=== PATIENT | male | born 1955 | race Caucasian/White ===

== ENCOUNTER 2017-05-03 11:02 | Inpatient (IN) | payer OTHER ==
[2017-05-03] VITALS (9 sets, daily range): BP systolic 150–181; BP diastolic 90–96; PULSE 84–108; RESP 18–25; TEMP 97.8–98.4; O2SAT 94–99
[~2017-05-03] VITALS: Ht 180.3 cm; Wt 78.6 kg
[~2017-05-03 11:02] MED LIST: ECASA PO; METO50TA PO; SOFOSBUVIR; WARF5 PO; [UNRECOGNIZED DRUG - CODE] PO
[2017-05-03] MEDS ORDERED: SOFO400T PO (11:14)
[2017-05-03] MEDS ORDERED: SODIUM CHLORIDE 0.9% FLUSH 10 ML FLUSH IVF PRN (11:15)
--- NOTE | 2017-05-03 11:34 | PD ---
HPI Chief Complaint: Respiratory Distress Time Seen by Provider: 11:13 Travel History International Travel<30 days: No Contact w/Intl Traveler<30days: No Traveled to known affect area: No History of Present Illness HPI Patient is a 61-year-old male presents emergency department for evaluation of shortness of breath progressive over the past few weeks. Patient also noticed that he has had increased leg swelling as well as shortness of breath when he lays down flat. He was seen at the [place] [facility] had a saturation of 84% there was placed on oxygen and EMS was called for transport here. Patient states he has a history of COPD no history of heart disease or CHF. PFSH Past Medical History Asthma: Yes Cancer: No Cardiovascular Problems: Yes (HTN, ) High Cholesterol: Yes COPD: Yes Cerebrovascular Accident: Yes (TIA) Diminished Hearing: No Endocrine: No Gastrointestinal Disorders: Yes Genitourinary: No Hypertension: Yes Immune Disorder: No Musculoskeletal: No Neurologic: Yes (TIA ) Psychiatric: No Reproductive: No Respiratory: Yes (COPD) Past Surgical History Other Surgery: Yes (HERNIA REPAIR X2) Social History Alcohol Use: No Tobacco Use: No (QUIT 1 WEEK AGO) Substance Use: No Allergies-Medications (Allergen,Severity, Reaction): Coded Allergies: No Known Allergies (Unverified , 05/03/17) Reported Meds & Prescriptions Reported Meds & Active Scripts Active Reported Vitamin D3 (Cholecalciferol) 1,000 Unit Tab 2,000 Units PO DAILY Pravastatin 40 Mg Tab 40 Mg PO DAILY Metoprolol Tartrate 100 Mg Tab 50 Mg PO BID Symbicort Inh (Budesonide/Formoterol Fumarate) 160-4.5 Mcg/Act Aero 2 Puff INH Q12HR Rinse mouth after each use Combivent Respimat Inh (Ipratropium-Albuterol Inh) 20-100 Long Term/Act Aero 1 Puff INH Q4HR Do not exceed 6 puffs/24hrs Duoneb (Ipratropium-Albuterol Neb) 0.5-2.5 Mg/3 Ml Neb 1 Vial NEB BID PRN Review of Systems Except as stated in HPI: all other systems reviewed are Neg Physical Exam Narrative GENERAL: Well-developed well-nourished, mildly short of breath with nontoxic appearance. SKIN: Focused skin assessment warm/dry. HEAD: Atraumatic. Normocephalic. EYES: Pupils equal and round. No scleral icterus. No injection or drainage. ENT: No nasal bleeding or discharge. Mucous membranes pink and moist. NECK: Trachea midline. No JVD. CARDIOVASCULAR: Regular rate and rhythm. No murmur appreciated. RESPIRATORY: No accessory muscle use. Bibasilar rales. Breath sounds equal bilaterally. GASTROINTESTINAL: Abdomen soft, non-tender, nondistended. Hepatic and splenic margins not palpable. MUSCULOSKELETAL: No obvious deformities. No clubbing. No cyanosis. 2+ pitting edema bilaterally equal from the patella distally.. NEUROLOGICAL: Awake and alert. No obvious cranial nerve deficits. Motor grossly within normal limits. Normal speech. PSYCHIATRIC: Appropriate mood and affect; insight and judgment normal. Data Data Last Documented VS Vital Signs Date Time Temp Pulse Resp B/P Pulse Ox O2 Delivery O2 Flow Rate FiO2 05/03/17 11:17 99 Nasal Cannula 05/03/17 11:17 3 05/03/17 11:15 97.8 88 25 154/96 Orders Electrocardiogram (05/03/17 11:13) Ckmb (Isoenzyme) Profile (05/03/17 11:13) Complete Blood Count With Diff (05/03/17 11:13) Comprehensive Metabolic Panel (05/03/17 11:13) Magnesium (Mg) (05/03/17 11:13) Prothrombin Time / Inr (Pt) (05/03/17 11:13) Act Partial Throm Time (Ptt) (05/03/17 11:13) Troponin I (05/03/17 11:13) Chest, Single Ap (05/03/17 11:13) Ecg Monitoring (05/03/17 11:13) Iv Access Insert/Monitor (05/03/17 11:13) Oximetry (05/03/17 11:13) Oxygen Administration (05/03/17 11:13) Sodium Chloride 0.9% Flush (Ns Flush) (05/03/17 11:15) CKMB (05/03/17 11:30) CKMB% (05/03/17 11:30) Aspirin Chew (Aspirin Chew) (05/03/17 12:45) Furosemide Inj (Lasix Inj) (05/03/17 12:45) Admit Order (Ed Use Only) (05/03/17 ) Labs Laboratory Tests Test 05/03/17 11:30 White Blood Count 8.0 TH/MM3 Red Blood Count 5.23 MIL/MM3 Hemoglobin 12.6 GM/DL Hematocrit 41.6 % Mean Corpuscular Volume 79.5 FL Mean Corpuscular Hemoglobin 24.2 PG Mean Corpuscular Hemoglobin 30.4 % Concent Red Cell Distribution Width 19.1 % Platelet Count 236 TH/MM3 Mean Platelet Volume 8.6 FL Neutrophils (%) (Auto) 75.7 % Lymphocytes (%) (Auto) 13.3 % Monocytes (%) (Auto) 9.5 % Eosinophils (%) (Auto) 0.9 % Basophils (%) (Auto) 0.6 % Neutrophils # (Auto) 6.1 TH/MM3 Lymphocytes # (Auto) 1.1 TH/MM3 Monocytes # (Auto) 0.8 TH/MM3 Eosinophils # (Auto) 0.1 TH/MM3 Basophils # (Auto) 0.1 TH/MM3 CBC Comment AUTO DIFF Differential Comment AUTO DIFF CONFIRMED Platelet Estimate NORMAL Platelet Morphology Comment NORMAL Prothrombin Time 12.2 SEC Prothromb Time International 1.1 RATIO Ratio Activated Partial 26.0 SEC Thromboplast Time Sodium Level 138 MEQ/L Potassium Level 4.2 MEQ/L Chloride Level 99 MEQ/L Carbon Dioxide Level 31.8 MEQ/L Anion Gap 7 MEQ/L Blood Urea Nitrogen 22 MG/DL Creatinine 1.35 MG/DL Estimat Glomerular Filtration 54 ML/MIN Rate Random Glucose 86 MG/DL Calcium Level 7.6 MG/DL Magnesium Level 1.6 MG/DL Total Bilirubin 0.4 MG/DL Aspartate Amino Transf 18 U/L (AST/SGOT) Alanine Aminotransferase 17 U/L (ALT/SGPT) Alkaline Phosphatase 78 U/L Total Creatine Kinase 146 U/L Creatine Kinase MB 5.6 NG/ML Troponin I 0.04 NG/ML B-Type Natriuretic Peptide 1345 PG/ML Total Protein 6.1 GM/DL Albumin 2.6 GM/DL [facility] Medical Decision Making Medical Screen Exam Complete: Yes Emergency Medical Condition: Yes Interpretation(s) EKG shows normal sinus rhythm normal axis normal R-wave progression concerning ST T changes intervals within normal limits. This normal EKG. Differential Diagnosis Acute onset CHF, electrolyte abnormality, ACS, [place], arrhythmia. Narrative Course Patient roomed in the emergency department, initial saturations low in the field , bonding well to nasal cannula oxygen. Given Lasix. Clinically patient is having acute congestive heart failure and fluid overload. Last 24 hours Impressions Chest X-Ray 05/03/17 1113 Signed Impressions: Service Date/Time: April 11:16 - CONCLUSION: 1. Mild cardiomegaly with bilateral effusion suggesting possible congestive failure. There are however consolidative changes in the lung bases and underlying pneumonia is not excluded. Alvarez Stein MD Clinically the patient does not exhibit signs of pneumonia, and I prefer an alternative diagnosis. He has not had any cough or fever or upper respiratory symptoms other than shortness of breath. Patient's troponin is in the equivocal range of 0.06. Secondary causes of CHF need to be considered. Discussed with the family medicine residents will be admitted to Dr. Rousseau, CIC is recommended given the patient's oxygen requirement. Diagnosis Primary Impression: CHF (congestive heart failure) Additional Impression: Acute respiratory failure with hypoxia Admitting Information Admitting Physician Requests: Admit Condition: Stable Bandar Kimble MD May 03, 2017 11:34
[2017-05-03] MEDS ORDERED: METO100T PO (11:44)
[2017-05-03] MEDS ORDERED: IPRASOL NEB (11:44)
[2017-05-03] MEDS ORDERED: VITA100018 PO (11:44)
[2017-05-03] MEDS ORDERED: SYMB160A INH (11:44)
[2017-05-03] MEDS ORDERED: PRAV40TA2 PO (11:44)
[2017-05-03] MEDS ORDERED: IPRAAER INH (11:44)
[2017-05-03 11:48] LABS: AUTOMATED NEUTROPHIL # 6.1 TH/MM3 (1.8-7.7); BASOPHIL # 0.1 TH/MM3 (0-0.2); BASOPHIL % 0.6 % (0.0-2.0); EOSINOPHIL # 0.1 TH/MM3 (0-0.4); EOSINOPHIL % 0.9 % (0.0-4.0); HEMATOCRIT 41.6 % (39.0-51.0); LYMPH % 13.3 % (9.0-44.0); LYMPHOCYTE # 1.1 TH/MM3 (1.0-4.8); MEAN CELL VOLUME 79.5 FL (80.0-100.0); MEAN CORPUSCULAR HEMOGLOBIN 24.2 PG (27.0-34.0); MEAN CORPUSCULAR HGB CONC 30.4 % (32.0-36.0); MONO % 9.5 % (0.0-8.0); NEUT % 75.7 % (16.0-70.0); PLATELET COUNT 236 TH/MM3 (150-450); RED BLOOD COUNT 5.23 MIL/MM3 (4.50-5.90); RED CELL DISTRIBUTION WIDTH 19.1 % (11.6-17.2)
[2017-05-03 11:50] LABS: HEMO FLAGS AUTO DIFF
[2017-05-03 11:57] LABS: INTERNATIONAL NORMALIZED RATIO 1.1 RATIO; PROTHROMBIN TIME - PATIENT 12.2 SEC (9.8-11.6)
[2017-05-03 12:04] LABS: ALT (GPT) 17 U/L (12-78); GLOMERULAR FILTRATION RATE 54 ML/MIN (>89)
--- NOTE | 2017-05-03 12:04 | RADRPT ---
EXAM DATE/TIME: 05/03/2017 11:16 [place] COMPARISON: No previous studies available for comparison. INDICATIONS : Shortness of breath for 3 weeks. MEDICAL HISTORY : Hypertension. Chronic obstructive pulmonary disease. Asthma. Diabetes. TIA. SURGICAL HISTORY : None. ENCOUNTER: Initial ACUITY: 3 weeks PAIN SCORE: 0/10 LOCATION: Bilateral chest FINDINGS: The heart is enlarged. There are small bilateral effusions. There consolidative changes in the lung b ases. Underlying pneumonia is not excluded. The visualized bony structures are grossly intact. CONCLUSION: 1. Mild cardiomegaly with bilateral effusion suggesting possible congestive failure. There are howeve r consolidative changes in the lung bases and underlying pneumonia is not excluded. Alvarez Stein MD on May 03, 2017 at 12:01 Board Certified Radiologist. This report was verified electronically.
[2017-05-03 12:09] LABS: ALKALINE PHOSPHATASE 78 U/L (45-117); ANION GAP 7 MEQ/L (5-15); AST (GOT) 18 U/L (15-37); BICARBONATE 31.8 MEQ/L (21.0-32.0); BLOOD UREA NITROGEN 22 MG/DL (7-18); CHLORIDE 99 MEQ/L (98-107); CREATINE KINASE 146 U/L (39-308); MAGNESIUM 1.6 MG/DL (1.5-2.5); POTASSIUM 4.2 MEQ/L (3.5-5.1); SODIUM (NA) 138 MEQ/L (136-145); TOTAL BILIRUBIN ADULT 0.4 MG/DL (0.2-1.0)
[2017-05-03 12:22] LABS: CKMB 5.6 NG/ML (0.5-3.6)
[2017-05-03 12:24] LABS: PLATELET ESTIMATE SMEAR NORMAL (NORMAL); PLATELET MORPHOLOGY NORMAL (NORMAL); SCAN/DIFF AUTO DIFF CONFIRMED
[2017-05-03] MEDS ORDERED: ASPIRIN 81 MG CHEW TAB CHEW ONE (12:45)
[2017-05-03] MEDS ORDERED: FUROSEMIDE 40 MG/4 ML VIAL IV PUSH ONE (12:45)
--- NOTE | 2017-05-03 12:58 | HHI.HP ---
[facility] Service Family Medicine Primary Care Physician [facility] Admission Diagnosis Diagnoses: International Travel<30 Days: No Contact w/Intl Traveler<30days: No Known Affected Area: No History of Present Illness Patient is a 61-year-old male with past medical history significant for COPD, hypertension, prediabetes presenting due to worsening shortness of breath. Patient was seen earlier today at the [place] and found to have a low oxygen saturation of 84%. He was transported to the ED via [facility]. He reports that over the past 3 weeks he has had progressively worsening shortness of breath. He attributed this to his COPD. His legs have been swollen for the same amount of time. He reports that the swelling initially started in his feet and ankles and gradually worsened. He reports that he has been drinking more fluids over the past few weeks. He drinks about 34 12 ounce bottles of water daily, as well as a similar sized bottle of the Gatorade. He denies prior history of lower extremity edema, heart problems. (Aditi Lopes MD R2) Review of Systems Constitutional: DENIES: Fever, Chills Eyes: DENIES: Blurred vision, Diplopia, Vision loss Ears, nose, mouth, throat: DENIES: Vertigo Respiratory: COMPLAINS OF: Wheezing, Shortness of breath, DENIES: Cough Cardiovascular: DENIES: Chest pain Gastrointestinal: DENIES: Constipation, Diarrhea Genitourinary: DENIES: Hematuria Musculoskeletal: DENIES: Joint pain, Muscle aches, Stiffness Integumentary: COMPLAINS OF: Rash Neurologic: COMPLAINS OF: Headache Psychiatric: COMPLAINS OF: Anxiety (Aditi Lopes MD R2) Past Family Social History Past Medical History COPD Hepatitis C, treated about 2 years ago HTN ?DM TIA, one year ago Hospitalized recently due to bleeding associated with serotherapeutic INR while on Coumadin Past Surgical History Inguinal and umbilical hernia repair Oral surgery Reported Medications Reported Meds & Active Scripts Active Reported Vitamin D3 (Cholecalciferol) 1,000 Unit Tab 2,000 Units PO DAILY Pravastatin 40 Mg Tab 40 Mg PO DAILY Metoprolol Tartrate 100 Mg Tab 50 Mg PO BID Symbicort Inh (Budesonide/Formoterol Fumarate) 160-4.5 Mcg/Act Aero 2 Puff INH Q12HR Rinse mouth after each use Combivent Respimat Inh (Ipratropium-Albuterol Inh) 20-100 Prison/Act Aero 1 Puff INH Q4HR Do not exceed 6 puffs/24hrs Duoneb (Ipratropium-Albuterol Neb) 0.5-2.5 Mg/3 Ml Neb 1 Vial NEB BID PRN ASA 81 mg po Daily Vit C 1000mg po daily (Aditi Lopes MD R2) Allergies: Coded Allergies: No Known Allergies (Unverified , 05/03/17) Active Ordered Medications Inpatient Medications Albuterol/ Ipratropium (Duoneb Neb) 1 ampule Q4HR NEB NEB Last administered on 05/03/17 20:11; Start 05/03/17 at 16:00 Aspirin (Aspirin Chew) 81 mg DAILY CHEW ; Start 05/04/17 at 09:00 Budesonide/ Formoterol Fumarate (Symbicort 160-4.5 Inh) 2 puff Q12HR INH Last administered on 05/03/17 21:20; Start 05/03/17 at 21:00 Cholecalciferol (Vitamin D3) 2,000 units DAILY PO ; Start 05/04/17 at 09:00 Enoxaparin Sodium (Lovenox Inj) 40 mg Q24H SQ Last administered on 05/03/17 16 :17; Start 05/03/17 at 15:00 Furosemide (Lasix Inj) 40 mg BID@,18 IVP Last administered on 05/03/17 17:45 ; Start 05/03/17 at 18:00 Metoprolol Tartrate (Lopressor) 50 mg BID PO Last administered on 05/03/17 21: 21; Start 05/03/17 at 21:00 Nystatin (Mycostatin Liq) 5 ml QID SWISH-SWAL Last administered on 05/03/17 21:20; Start 05/03/17 at 18:00 Potassium Chloride (KCl) 20 meq BID PO Last administered on 05/03/17 21:21; Start 05/03/17 at 21:00 Pravastatin Sodium (Pravachol) 40 mg DAILY PO ; Start 05/04/17 at 09:00 Sodium Chloride (NS Flush) 2 ml UNSCH PRN IV FLUSH FLUSH AFTER USING IV ACCESS ; Start 05/03/17 at 13:45 Family History Mother: On Coumadin, unsure of reason, 83 living, overall healthy Father: in 70's from unspecified heart problems Social History Currently lives alone in [employer] Previously smoked 40 years up to 2 packs per day, he quit about one weeks ago. March 10 he quit drinking. Previously drank for 40 years History of marijuana and cocaine use, last use several years ago. Denies ever using IV drugs. (Aditi Lopes MD R2) Physical Exam Vital Signs Vital Signs Date Time Temp Pulse Resp B/P Pulse Ox O2 Delivery O2 Flow Rate FiO2 05/03/17 11:17 99 Nasal Cannula 05/03/17 11:17 99 Nasal Cannula 3 05/03/17 11:15 97.8 88 25 154/96 96 Nasal Cannula 3 Physical Exam GENERAL: This is a well-nourished, well-developed patient, in no acute cardiopulmonary. SKIN: some redness of lower extremities, R>L, no ecchymoses or lesions. Cool and dry. HEAD: Atraumatic. Normocephalic. No temporal or scalp tenderness. EYES: Pupils equal round and reactive. Extraocular motions intact. No scleral icterus. No injection or drainage. ENT: Nose without bleeding, purulent drainage or septal hematoma. Throat without erythema, tonsillar hypertrophy. White plaques present in posterior pharynx, consistent with candidiasis. Uvula midline. Airway patent. NECK: Trachea midline. No JVD or lymphadenopathy. Supple, nontender, no meningeal signs. No carotid bruits. CARDIOVASCULAR: Distant heart sounds. Regular rate and rhythm without murmurs, gallops, or rubs. RESPIRATORY: Clear to auscultation. Poor air movement, decreased breath sounds. GASTROINTESTINAL: Abdomen soft, non-tender, nondistended. No hepato-splenomegaly , or palpable masses. No guarding. Pt with pitting edema to level of mid abdomen. MUSCULOSKELETAL: 2+ pitting edema of lower extremities that entends to mid abdomen. NEUROLOGICAL: Awake and alert. Motor and sensory grossly within normal limits. Normal speech. Laboratory Laboratory Tests Test 05/03/17 11:30 White Blood Count 8.0 Red Blood Count 5.23 Hemoglobin 12.6 Hematocrit 41.6 Mean Corpuscular Volume 79.5 Mean Corpuscular Hemoglobin 24.2 Mean Corpuscular Hemoglobin 30.4 Concent Red Cell Distribution Width 19.1 Platelet Count 236 Mean Platelet Volume 8.6 Neutrophils (%) (Auto) 75.7 Lymphocytes (%) (Auto) 13.3 Monocytes (%) (Auto) 9.5 Eosinophils (%) (Auto) 0.9 Basophils (%) (Auto) 0.6 Neutrophils # (Auto) 6.1 Lymphocytes # (Auto) 1.1 Monocytes # (Auto) 0.8 Eosinophils # (Auto) 0.1 Basophils # (Auto) 0.1 CBC Comment AUTO DIFF Differential Comment AUTO DIFF CONFIRMED Platelet Estimate NORMAL Platelet Morphology Comment NORMAL Prothrombin Time 12.2 Prothromb Time International 1.1 Ratio Activated Partial 26.0 Thromboplast Time Sodium Level 138 Potassium Level 4.2 Chloride Level 99 Carbon Dioxide Level 31.8 Anion Gap 7 Blood Urea Nitrogen 22 Creatinine 1.35 Estimat Glomerular Filtration 54 Rate Random Glucose 86 Calcium Level 7.6 Magnesium Level 1.6 Total Bilirubin 0.4 Aspartate Amino Transf 18 (AST/SGOT) Alanine Aminotransferase 17 (ALT/SGPT) Alkaline Phosphatase 78 Total Creatine Kinase 146 Creatine Kinase MB 5.6 Troponin I 0.04 Total Protein 6.1 Albumin 2.6 (Aditi Lopes MD R2) Result Diagram: 05/03/17 1130 05/03/17 1130 Imaging Last Impressions Chest X-Ray 05/03/17 1113 Signed Impressions: Service Date/Time: , May 03, 2017 11:16 - CONCLUSION: 1. Mild cardiomegaly with bilateral effusion suggesting possible congestive failure. There are however consolidative changes in the lung bases and underlying pneumonia is not excluded. Alvarez Stein MD (Aditi Lopes MD R2) Assessment and Plan Assessment and Plan Patient is a 61-year-old male with past medical history significant for COPD, hypertension, prediabetes presenting due to worsening shortness of breath. Code Status Full Discussed Condition With sdw Dr. Cy Miller (Aditi Lopes MD R2) Attending Attestation Patient seen and examined. Case reviewed and discussed with the resident team. Agree with plan of care as discussed with me and documented in the resident note. (Zenobia Rousseau MD) Problem List: (1) CHF (congestive heart failure) Status: Acute Plan: Patient presents with worsening shortness of breath and lower extremity edema. Patient denies history of heart problems. BNP on admission elevated to 1345. -Will rule out ACS as possible cause of acute onset CHF: Troponin 0.04-> 0.05-> 0.06 -No acute ST changes on EKG -Trend BNP -We'll check TSH, lipid profile -Furosemide 40 mg IV BID -Monitor intake and output -Fluid restriction -Daily weights -Monitor electrolytes Imaging: Echocardiogram 05/03/17: Normal left ventricle systolic function, EF of 5560 percent. Normal left ventricle size. Wall thickness is at the upper limits of normal. Moderate tricuspid regurgitation. Estimated pulmonary arterial pressure is 62 mmHg. Chest x-ray 05/03/17: Mild cardiomegaly with bilateral effusions suggestive of congestive heart failure. Consolidative changes in the lung bases, pneumonia is not excluded. (2) COPD (chronic obstructive pulmonary disease) Status: Chronic Plan: Continue home medications: -Symbicort 2 puffs INH BID -DuoNeb's Q6hrs PRN SOB -Supplemental oxygen as needed (3) Oral candidiasis Status: Acute Plan: Patient with white plaques in the posterior oropharynx consistent with candidiasis. -Start Nystatin swish and swallow QID (4) Hyperlipemia Status: Chronic Plan: Continue home medication: -Pravastatin 40 mg PO Daily (5) HTN (hypertension) Status: Chronic Plan: Continue home medications: -Metoprolol 50 mg BID -Clonidine and hydralazine PRN See CHF above (6) FEN/PPX Status: Acute Plan: Fluids: None, pt fluid overloaded Electrolytes: Continue to monitor Nutrition: Heart healthy diet, fluid restricted DVT PPX: Lovenox (Aditi Lopes MD R2) Physician Certification 2 Midnight Certification Type: Admission for Inpatient Services Order for Inpatient Services The services are ordered in accordance with Medicare regulations or non- Medicare payer requirements, as applicable. In the case of services not specified as inpatient-only, they are appropriately provided as inpatient services in accordance with the 2-midnight benchmark. Estimated LOS (days): 2 2 days is the estimated time the patient will need to remain in the hospital, assuming treatment plan goals are met and no additional complications. Post-Hospital Plan: Home (Aditi Lopes MD R2) Problem Qualifiers (1) CHF (congestive heart failure): Qualified Code: I50.41 - Acute combined systolic and diastolic congestive heart failure Aditi Lopes MD R2 May 03, 2017 12:58 Zenobia Rousseau MD May 04, 2017 08:12
[2017-05-03] MEDS ORDERED: SODIUM CHLORIDE 0.9% FLUSH 10 ML FLUSH IV FLUSH PRN (13:45)
[2017-05-03] MEDS ORDERED: RESP: ALBUTEROL 2.5 MG/IPRATROPIUM 0.5 MG NEB (PRN) NEB (14:45)
[2017-05-03] MEDS: ENOXAPARIN SODIUM 40 MG/0.4 ML SYRINGE SQ SCH (16:17)
--- NOTE | 2017-05-03 16:49 | HHI.FPPN ---
Subjective Remarks Patient seen, examined and discussed with the medicine team. This is a 61-year-old who was seen at the [place] [facility] today for regular appointment and was sent to the hospital because his oxygen saturation was in the upper 80s. He reports that, 2 weeks prior to admission, he essentially suddenly started to notice significant swelling in his lower extremities. He was at work during the day and his boots felt tight, and he got home at night he noticed significant swelling in his ankles. He has held off going to the doctor for this because he knew he had an upcoming appointment. The swelling has worsened, and he has become significantly short of breath. He's never had a previous similar problem although he did have a TIA or stroke in the past. He has over time been a have very heavy smoker but has gradually tapered his tobacco use and quit one week ago. He was a heavy drinker and used illicits in the past but quit drinking when he had to be medicated for his hepatitis C. No further illicit use. This symptom of swelling and shortness of breath seemed to come on rather suddenly, and has not been relieved. He is on multiple medications including aspirin and statin. See history and physical examination for this admission for additional past, family and social history and review of systems. In particular, he denies chest pain and reports some increased abdominal girth. No unusual dietary intake and no recent changes in his chronic medications. Objective Vitals Vital Signs Date Time Temp Pulse Resp B/P Pulse Ox O2 Delivery O2 Flow Rate FiO2 05/03/17 11:17 99 Nasal Cannula 05/03/17 11:17 99 Nasal Cannula 3 05/03/17 11:15 97.8 88 25 154/96 96 Nasal Cannula 3 I/O 05/02/17 05/02/17 05/02/17 05/03/17 05/03/17 05/03/17 07:00 15:00 23:00 07:00 15:00 23:00 Intake Total 240 ml Output Total 1375 ml 500 ml Balance -1135 ml -500 ml Intake Oral 240 ml Output Urine Total 1375 ml 500 ml # Voids 2 1 Result Diagram: 05/03/17 1130 05/03/17 1130 Other Results Laboratory Tests Test 05/03/17 11:30 Hemoglobin 12.6 GM/DL Mean Corpuscular Volume 79.5 FL Mean Corpuscular Hemoglobin 24.2 PG Mean Corpuscular Hemoglobin 30.4 % Concent Red Cell Distribution Width 19.1 % Neutrophils (%) (Auto) 75.7 % Monocytes (%) (Auto) 9.5 % Prothrombin Time 12.2 SEC Blood Urea Nitrogen 22 MG/DL Creatinine 1.35 MG/DL Estimat Glomerular Filtration 54 ML/MIN Rate Calcium Level 7.6 MG/DL Creatine Kinase MB 5.6 NG/ML B-Type Natriuretic Peptide 1345 PG/ML Total Protein 6.1 GM/DL Albumin 2.6 GM/DL Imaging Last Impressions Chest X-Ray 05/03/17 1113 Signed Impressions: Service Date/Time: , May 03, 2017 11:16 - CONCLUSION: 1. Mild cardiomegaly with bilateral effusion suggesting possible congestive failure. There are however consolidative changes in the lung bases and underlying pneumonia is not excluded. Alvarez Stein MD Objective Remarks O. CONSTITUTIONAL/GEN: normally nourished, in NAD. EYES: conjunctiva normal, PERRLA, EOMI. ENT: Mucous membranes are moist, but he has white patches in the posterior pharynx. NECK: thyroid midline, carotids symmetrical. LUNGS: Decreased breath sounds throughout CARDIOVASCULAR: RR without murmur or gallop. He has marked pitting edema to the low back, sacral and lower abdominal wall. GI/ABD: Firm with pitting edema : no CVA tenderness NEURO: No focal deficits. SKIN: Erythematous rash on his left lower extremity, skin is warm and pink HEME/LYMPH: no bruising, petechia or significant adenopathy MUSC: back is normal in appearance with the exception of the sacral edema. Lower Extremities show pitting edema throughout, 4+ PSYCH/MENTAL STATUS: Alert and oriented x 3. A/P Assessment and Plan 61-year-old who presents with symptoms of congestive heart failure superimposed on COPD Attending Attestation Patient seen and examined. Case reviewed and discussed with the resident team. Agree with plan of care as discussed with me and documented in the resident note. Problem List: (1) Acute respiratory failure with hypoxia Status: Acute (2) CHF (congestive heart failure) Status: Acute (3) Oral pharyngeal candidiasis Status: Acute Problem Qualifiers (1) CHF (congestive heart failure): Qualified Code: I50.41 - Acute combined systolic and diastolic congestive heart failure Zenobia Rousseau MD May 03, 2017 16:49
[2017-05-03] MEDS: FUROSEMIDE 40 MG/4 ML VIAL IVP SCH (17:45)
[2017-05-03] MEDS: RESP: ALBUTEROL 2.5 MG/IPRATROPIUM 0.5 MG NEB (SCH) NEB ×2 (17:46→20:11)
--- NOTE | 2017-05-03 17:47 | ECHRPT ---
Indication: Chronic combined systolic (congestive) and diastolic (congestive) heart failure CONCLUSIONS The left ventricular systolic function is normal with an estimated ejection fraction in the range of 55-60%. Normal left ventricular size. Wall thickness is measured at the upper limits of normal. There is moderate tricuspid regurgitation. The estimated pulmonary arterial pressure is 62 mmHg. The pulmonary valve is not well visualized. BP: 154 / 96 HR: 88 Rhythm: Sinus MEASUREMENTS (Male / Female) Normal Values Technical Quality:Fair 2D ECHO LV Diastolic Diameter PLAX 5.5 cm 4.2 - 5.9 / 3.9 - 5.3 cm LV Systolic Diameter PLAX 4.2 cm IVS Diastolic Thickness 1.1 cm 0.6 - 1.0 / 0.6 - 0.9 cm LVPW Diastolic Thickness 1.1 cm 0.6 - 1.0 / 0.6 - 0.9 cm LV Relative Wall Thickness 0.4 LVOT Diameter 2.2 cm M-MODE Aortic Root Diameter MM 2.6 cm LA Systolic Diameter MM 3.3 cm LA Ao Ratio MM 1.3 AV Cusp Separation MM 1.7 cm DOPPLER AV Peak Velocity 124.0 cm/s AV Peak Gradient 6.2 mmHg LVOT Peak Velocity 91.8 cm/s LVOT Peak Gradient 3.4 mmHg AV Area Cont Eq pk 2.8 cm Mitral E Point Velocity 99.2 cm/s Mitral A Point Velocity 105.0 cm/s Mitral E to A Ratio 0.9 LV E' Lateral Velocity 10.3 cm/s Mitral E to LV E' Lateral Ratio 9.6 LV E' Septal Velocity 9.8 cm/s Mitral E to LV E' Septal Ratio 10.1 TR Peak Velocity 360.0 cm/s TR Peak Gradient 51.8 mmHg PV Peak Velocity 114.0 cm/s PV Peak Gradient 5.2 mmHg FINDINGS LEFT VENTRICLE The left ventricular systolic function is normal with an estimated ejection fraction in the range of 55-60%. Normal left ventricular size. Wall thickness is measured at the upper limits of normal. RIGHT VENTRICLE Normal right ventricular size and systolic function. LEFT ATRIUM The left atrial size is normal. RIGHT ATRIUM The right atrial size is normal. ATRIAL SEPTUM Normal atrial septal thickness without atrial level shunting by limited color doppler interrogation. AORTA The aortic root and proximal ascending aorta are normal in size on limited imaging. MITRAL VALVE Structurally normal mitral valve. No mitral valve stenosis or regurgitation. AORTIC VALVE Trileaflet aortic valve. No aortic valve stenosis or regurgitation. Aortic valve sclerosis is present. TRICUSPID VALVE Structurally normal tricuspid valve. There is moderate tricuspid regurgitation. The estimated pulmonary arterial pressure is 62 mmHg. PULMONARY VALVE The pulmonary valve is not well visualized. VESSELS The inferior vena cava is normal in size. PERICARDIUM There is no pericardial effusion present. Suhas Avila MD (Electronically Signed) Final Date:03 May 2017 17:46 Amended: 03 May 2017 17:49
[2017-05-03] MEDS: NYSTATIN SUSP 500,000 U/5 ML CUP SWISH-SWAL SCH ×2 (17:51→21:20)
[2017-05-03 19:42] LABS: CREATINE KINASE 107 U/L (39-308)
[2017-05-03 19:55] LABS: CKMB 6.2 NG/ML (0.5-3.6)
[2017-05-03] MEDS: BUDESONIDE-FORMOTEROL 160/4.5 MCG INHALER INH SCH (21:20)
[2017-05-03] MEDS: POTASSIUM CHLORIDE 20 MEQ CONTROLLED RELEASE TAB PO SCH (21:21)
[2017-05-03] MEDS: METOPROLOL TARTRATE 50 MG TAB PO SCH (21:21)
[2017-05-03] MEDS: SODIUM CHLORIDE 0.9% FLUSH 10 ML FLUSH IV FLUSH SCH (21:21)
[2017-05-04] VITALS (26 sets, daily range): BP systolic 146–164; BP diastolic 90–96; PULSE 84–108; RESP 20; TEMP 97.9–98.3; O2SAT 94–95
[2017-05-04] MEDS: RESP: ALBUTEROL 2.5 MG/IPRATROPIUM 0.5 MG NEB (SCH) NEB
[2017-05-04] MEDS ORDERED: cloNIDine HCL 0.1 MG TAB PO PRN (00:45)
[2017-05-04 00:58] LABS: CREATINE KINASE 114 U/L (39-308)
[2017-05-04 01:11] LABS: CKMB 5.8 NG/ML (0.5-3.6)
[2017-05-04] MEDS ORDERED: DOCUSATE SODIUM 50 MG/SENNA 8.6 MG TAB PO PRN (01:30)
[2017-05-04] MEDS: hydrALAZINE HCL 10 MG TAB PO PRN (05:30)
[2017-05-04 07:14] LABS: BASOPHIL # 0.1 TH/MM3 (0-0.2); BASOPHIL % 0.7 % (0.0-2.0); EOSINOPHIL # 0.1 TH/MM3 (0-0.4); EOSINOPHIL % 1.4 % (0.0-4.0); HEMATOCRIT 40.8 % (39.0-51.0); HEMO FLAGS DIFF FINAL; LYMPH % 15.1 % (9.0-44.0); LYMPHOCYTE # 1.1 TH/MM3 (1.0-4.8); MEAN CELL VOLUME 79.3 FL (80.0-100.0); MEAN CORPUSCULAR HEMOGLOBIN 24.2 PG (27.0-34.0); MEAN CORPUSCULAR HGB CONC 30.5 % (32.0-36.0); MONO % 12.6 % (0.0-8.0); NEUT % 70.2 % (16.0-70.0); PLATELET COUNT 232 TH/MM3 (150-450); RED BLOOD COUNT 5.14 MIL/MM3 (4.50-5.90); RED CELL DISTRIBUTION WIDTH 18.8 % (11.6-17.2); WHITE BLOOD COUNT 7.1 TH/MM3 (4.0-11.0)
[2017-05-04 07:38] LABS: ALT (GPT) 17 U/L (12-78); ANION GAP 9 MEQ/L (5-15); AST (GOT) 15 U/L (15-37); BICARBONATE 37.5 MEQ/L (21.0-32.0); BLOOD UREA NITROGEN 22 MG/DL (7-18); CHLORIDE 95 MEQ/L (98-107); POTASSIUM 3.9 MEQ/L (3.5-5.1); SODIUM (NA) 141 MEQ/L (136-145)
[2017-05-04 07:43] LABS: ALKALINE PHOSPHATASE 78 U/L (45-117); GLOMERULAR FILTRATION RATE 52 ML/MIN (>89); HDL CHOLESTEROL 24.3 MG/DL (40.0-60.0); TOTAL BILIRUBIN ADULT 0.6 MG/DL (0.2-1.0)
[2017-05-04] MEDS: METOPROLOL TARTRATE 50 MG TAB PO SCH ×2 (08:05→20:40)
[2017-05-04] MEDS: POTASSIUM CHLORIDE 20 MEQ CONTROLLED RELEASE TAB PO SCH ×2 (08:05→20:40)
[2017-05-04] MEDS: PRAVASTATIN SOD 40 MG TAB PO SCH (08:05)
[2017-05-04] MEDS: CHOLECALCIFEROL (VIT D3) 1000 UNIT TAB PO SCH (08:05)
[2017-05-04] MEDS: NYSTATIN SUSP 500,000 U/5 ML CUP SWISH-SWAL SCH ×4 (08:05→20:39)
[2017-05-04] MEDS: ASPIRIN 81 MG CHEW TAB CHEW SCH (08:05)
[2017-05-04] MEDS: SODIUM CHLORIDE 0.9% FLUSH 10 ML FLUSH IV FLUSH SCH ×2 (08:06→20:40)
[2017-05-04] MEDS: BUDESONIDE-FORMOTEROL 160/4.5 MCG INHALER INH SCH ×2 (08:06→20:39)
[2017-05-04] MEDS: FUROSEMIDE 40 MG/4 ML VIAL IVP SCH ×2 (08:06→17:17)
[2017-05-04 08:23] LABS: LDL CHOLESTEROL 36 MG/DL (0-99)
[2017-05-04] MEDS: ENOXAPARIN SODIUM 40 MG/0.4 ML SYRINGE SQ SCH (15:21)
--- NOTE | 2017-05-04 17:36 | HHI.FPPN ---
Subjective Remarks Patient seen and examined by medical team this morning. No acute events overnight with vital signs stable. Patient reports that he has been urinating all night secondary to his Lasix treatment. He states that his swelling has dramatically improved and feels much better. He currently has no complaints and denies any fevers, chills, shortness of breath, chest pain, NVD, abdominal tenderness, or calf tenderness. (Michael Benoit MD R1) Objective Vitals Vital Signs Date Time Temp Pulse Resp B/P Pulse Ox O2 Delivery O2 Flow Rate FiO2 05/04/17 16:00 98.3 87 20 164/95 94 05/04/17 15:00 95 Nasal Cannula 2.00 05/04/17 12:00 90 05/04/17 12:00 98.3 91 20 156/96 95 05/04/17 12:00 95 Nasal Cannula 2.00 05/04/17 11:00 90 05/04/17 10:00 86 05/04/17 09:00 94 05/04/17 08:44 94 Nasal Cannula 2.00 05/04/17 08:15 97.9 97 20 159/93 95 05/04/17 08:15 95 Nasal Cannula 2.00 05/04/17 08:00 96 05/04/17 07:00 95 05/04/17 06:10 94 05/04/17 05:00 98 05/04/17 04:00 93 05/04/17 03:00 93 05/04/17 03:00 98.3 92 20 153/90 94 05/04/17 03:00 94 Nasal Cannula 2.00 05/04/17 02:12 94 05/04/17 01:00 90 05/04/17 00:00 88 05/03/17 23:00 84 05/03/17 23:00 98 Nasal Cannula 2.00 05/03/17 23:00 98.0 89 20 150/90 98 05/03/17 22:00 102 05/03/17 21:00 108 05/03/17 20:00 94 05/03/17 19:00 102 05/03/17 19:00 95 Nasal Cannula 3.00 05/03/17 19:00 98.4 95 22 162/91 95 05/03/17 17:46 154/91 05/03/17 17:44 93 18 181/94 94 I/O 05/03/17 05/03/17 05/03/17 05/04/17 05/04/17 05/04/17 07:00 15:00 23:00 07:00 15:00 23:00 Intake Total 240 ml 720 ml Output Total 1375 ml 500 ml 3200 ml Balance -1135 ml -500 ml -2480 ml Intake Oral 240 ml 720 ml Output Urine Total 1375 ml 500 ml 3200 ml # Voids 2 1 # Bowel Movements 1 (Michael Benoit MD R1) Result Diagram: 05/04/17 0646 05/04/17 0646 Objective Remarks GENERAL: 61-year-old male sitting up in his recliner in no acute cardiopulmonary distress. SKIN: Erythema of the anterior lower extremities, R>L, no ecchymoses or lesions. Cool and dry. HEENT: Atraumatic, normocephalic with EOMI. White plaques on admission of oropharynx resolving with minimal residual. MMM. No JVD or LAD appreciated CARDIOVASCULAR: Distant heart sounds. Regular rate and rhythm without murmurs, gallops, or rubs. RESPIRATORY: Clear to auscultation. Mildly improved air movement, decreased breath sounds bilaterally. GASTROINTESTINAL: Abdomen soft, non-tender, nondistended. No hepato-splenomegaly , or palpable masses. No guarding. Pt with pitting edema to level of mid abdomen with mild improvement. MUSCULOSKELETAL: 2+ pitting edema of lower extremities that extends to mid abdomen. NEUROLOGICAL: Awake and alert. Motor and sensory grossly within normal limits. Normal speech. (Michael Benoit MD R1) A/P Assessment and Plan Patient is a 61-year-old male with past medical history significant for COPD, hypertension, prediabetes presenting due to worsening shortness of breath. Discharge Planning Pending further diuresis and clinical improvement. (Michael Benoit MD R1) Attending Attestation Patient seen and examined. Case reviewed and discussed with the resident team. Agree with plan of care as discussed with me and documented in the resident note. (Zenobia Rousseau MD) Problem List: (1) Lower extremity edema Status: Acute Plan: Patient with recent lower extremity edema and sacral with echocardiogram. Team to evaluate for other possible etiologies of excessive edema. UA: Pending Liver ultrasound: Pending (2) CHF (congestive heart failure) Status: Acute Plan: Patient presents with worsening shortness of breath and lower extremity edema. Patient denies history of heart problems. BNP on admission elevated to 1345. -Troponin 0.04-> 0.05-> 0.06 -No acute ST changes on EKG -BNP, 1345, 1931 -TSH within normal limits -Lipid panel: Triglycerides 80, cholesterol 76, LDL 36, HDL 24 -Furosemide 40 mg IV BID -Monitor intake and output -Fluid restriction -Daily weights -Monitor electrolytes Imaging: Echocardiogram 05/03/17: Normal left ventricle systolic function, EF of 5560 percent. Normal left ventricle size. Wall thickness is at the upper limits of normal. Moderate tricuspid regurgitation. Estimated pulmonary arterial pressure is 62 mmHg. Chest x-ray 05/03/17: Mild cardiomegaly with bilateral effusions suggestive of congestive heart failure. Consolidative changes in the lung bases, pneumonia is not excluded. (3) COPD (chronic obstructive pulmonary disease) Status: Chronic Plan: Continue home medications: -Symbicort 2 puffs INH BID -DuoNeb's Q6hrs PRN SOB -Supplemental oxygen as needed -Incentive spirometry (4) Oral candidiasis Status: Acute Plan: Patient with white plaques in the posterior oropharynx consistent with candidiasis. -Start Nystatin swish and swallow QID (5) Hyperlipemia Status: Chronic Plan: Continue home medication: -Pravastatin 40 mg PO Daily (6) HTN (hypertension) Status: Chronic Plan: Continue home medications: -Metoprolol 50 mg BID -Clonidine and hydralazine PRN See CHF above (7) FEN/PPX Status: Acute Plan: Fluids: None, pt fluid overloaded Electrolytes: Continue to monitor Nutrition: Heart healthy diet, fluid restricted DVT PPX: Lovenox (Michael Benoit MD R1) Problem Qualifiers (1) CHF (congestive heart failure): Qualified Code: I50.41 - Acute combined systolic and diastolic congestive heart failure Michael Benoit MD R1 May 04, 2017 17:36 Zenobia Rousseau MD May 04, 2017 18:47
[2017-05-04] MEDS ORDERED: NALOXONE HCL 0.4 MG/ML AMP IV PRN (19:15)
[2017-05-04] MEDS ORDERED: ACETAMINOPHEN 325 MG TAB PO PRN (19:15)
[2017-05-04] MEDS: ACETAMINOPHEN/HYDROcodone 325 MG/5 MG TAB PO PRN (20:40)
--- NOTE | 2017-05-04 22:28 | EKG ---
Date Performed: 05/04/2017 Time Performed: 03:42:22 PTAGE: 61 years EKG: Sinus rhythm Possible left atrial abnormality Lateral T wave changes are nonspecific Borderline ECG PREVIOUS TRACING : 05/03/2017 20.43 DOCTOR: Bassam Bhardwaj Interpretating Date/Time 05/04/2017 22:27:06
--- NOTE | 2017-05-04 22:36 | EKG ---
Date Performed: 05/03/2017 Time Performed: 20:43:14 PTAGE: 61 years EKG: Sinus rhythm Lateral T wave changes are nonspecific Borderline ECG PREVIOUS TRACING : 05/03/2017 11.28 DOCTOR: Bassam Bhardwaj Interpretating Date/Time 05/04/2017 22:34:12
--- NOTE | 2017-05-04 22:56 | EKG ---
Date Performed: 05/03/2017 Time Performed: 11:28:54 PTAGE: 61 years EKG: Sinus rhythm POSSIBLE LEFT ATRIAL ENLARGEMENT NONSPECIFIC T-WAVE ABNORMALITY ABNORMAL ECG PREVIOUS TRACING : 04/29/2016 15.39 DOCTOR: Bassam Bhardwaj Interpretating Date/Time 05/04/2017 22:55:13
[2017-05-05] VITALS (26 sets, daily range): BP systolic 152–180; BP diastolic 68–109; PULSE 76–107; RESP 18–20; TEMP 97.6–98.4; O2SAT 92–96
[2017-05-05 01:12] LABS: BLOOD, URINE NEG (NEG); COMMENT (UR) CULT NOT INDICATED; CULTURE IF INDICATED CULT NOT INDICATED; GLUCOSE,URINE NEG (NEG); KETONE, URINE NEG (NEG); NITRITE,URINE NEG (NEG); URINE COLOR LIGHT-YELLOW (YELLW/STRAW)
[2017-05-05] MEDS: ACETAMINOPHEN/HYDROcodone 325 MG/5 MG TAB PO PRN ×2 (01:27→21:24)
[2017-05-05] MEDS: hydrALAZINE HCL 10 MG TAB PO PRN (05:41)
[2017-05-05 05:46] LABS: HEMATOCRIT 40.6 % (39.0-51.0); MEAN CELL VOLUME 77.2 FL (80.0-100.0); MEAN CORPUSCULAR HEMOGLOBIN 24.6 PG (27.0-34.0); MEAN CORPUSCULAR HGB CONC 31.8 % (32.0-36.0); PLATELET COUNT 254 TH/MM3 (150-450); RED BLOOD COUNT 5.25 MIL/MM3 (4.50-5.90); REVIEW FLAG FINAL; WHITE BLOOD COUNT 7.5 TH/MM3 (4.0-11.0)
[2017-05-05 06:10] LABS: BLOOD UREA NITROGEN 18 MG/DL (7-18); CHLORIDE 93 MEQ/L (98-107); GLOMERULAR FILTRATION RATE 48 ML/MIN (>89); POTASSIUM 4.1 MEQ/L (3.5-5.1); SODIUM (NA) 142 MEQ/L (136-145)
[2017-05-05 06:11] LABS: ANION GAP 4 MEQ/L (5-15); BICARBONATE GREATER THAN 45.0 MEQ/L (21.0-32.0)
--- NOTE | 2017-05-05 08:37 | RADRPT ---
EXAM DATE/TIME: 05/05/2017 07:44 [facility] COMPARISON: CHEST SINGLE AP, May 03, 2017, 11:16. INDICATIONS : Abnormal labs. Hepatitis C. MEDICAL HISTORY : Hepatitis C. Hypercholesterolemia. Hypertension. CVA. COPD. Diabetes. SURGICAL HISTORY : Hernia repair. ENCOUNTER: Initial ACUITY: 2 days PAIN SCORE: 0/10 LOCATION: Bilateral upper quadrant MEASUREMENTS: LIVER: 17.6 cm length COMMON DUCT: 3 mm RIGHT KIDNEY: 10.8 x 5.2 x 5.0 cm SPLEEN: 12.6 cm length FINDINGS: LIVER: Normal echotexture without focal lesion or ductal dilatation. Main portal vein is patent with hepato pedal blood flow. COMMON DUCT: No intraluminal mass or stone visualized. GALLBLADDER: Contains no stones, demonstrates no wall thickening or pericholecystic fluid. PANCREAS: The visualized portions are within normal limits. RIGHT KIDNEY: No hydronephrosis, stone or mass. SPLEEN: No focal lesion. There are bilateral pleural effusions, right larger than left. CONCLUSION: 1. Liver demonstrates no abnormality to suggest cirrhosis. 2. Bilateral pleural effusions, right larger than left. Moe Mckinney MD on May 05, 2017 at 8:32 Board Certified Radiologist. This report was verified electronically.
--- NOTE | 2017-05-05 08:52 | HHI.FPPN ---
Subjective Remarks Patient seen and examined this morning. No acute events overnight with vital signs stable. Patient states that overnight he began to experience mild pain in his lower extremities and back which responded to [place] medication. Patient continues to have mild shortness of breath requiring 2-1/2 L of oxygen currently. He reports that while at the [facility] he was being evaluated for home oxygen and was using a friend's home oxygen tank as needed when short of breath at home. He has no other complaints and denies any fevers, chills, chest pain, NVD, abdominal pain, or calf tenderness. He expresses his desire to go home today, however we both agreed further diuresis and respiratory evaluation was needed. He was agreeable to possible discharge on 05/03 or pending his clinical course. (Michael Benoit MD R1) Objective Vitals Vital Signs Date Time Temp Pulse Resp B/P Pulse Ox O2 Delivery O2 Flow Rate FiO2 05/05/17 08:10 88 05/05/17 07:57 92 Nasal Cannula 2.00 05/05/17 07:36 95 Nasal Cannula 2.00 05/05/17 07:36 98.0 94 18 155/89 95 05/05/17 07:36 94 05/05/17 06:00 92 05/05/17 05:37 157/94 05/05/17 05:00 97.6 76 18 162/98 94 05/05/17 05:00 90 05/05/17 04:00 94 Nasal Cannula 2.00 05/05/17 04:00 88 05/05/17 03:00 86 05/05/17 02:00 86 05/05/17 01:00 98.0 92 20 152/97 95 05/05/17 01:00 86 05/05/17 00:00 84 05/04/17 23:00 84 05/04/17 23:00 95 Nasal Cannula 2.00 05/04/17 22:00 94 05/04/17 21:00 98 05/04/17 21:00 95 Nasal Cannula 2.00 05/04/17 20:00 98.2 98 20 146/93 95 05/04/17 20:00 103 05/04/17 19:00 102 05/04/17 18:00 106 05/04/17 17:00 108 05/04/17 16:00 100 05/04/17 16:00 98.3 87 20 164/95 94 05/04/17 15:00 95 Nasal Cannula 2.00 05/04/17 15:00 96 05/04/17 14:00 96 05/04/17 13:00 94 05/04/17 12:00 90 05/04/17 12:00 98.3 91 20 156/96 95 05/04/17 12:00 95 Nasal Cannula 2.00 05/04/17 11:00 90 05/04/17 10:00 86 05/04/17 09:00 94 I/O 05/04/17 05/04/17 05/04/17 05/05/17 05/05/17 05/05/17 07:00 15:00 23:00 07:00 15:00 23:00 Intake Total 720 ml 400 ml 480 ml Output Total 3200 ml 2600 ml 1500 ml Balance -2480 ml -2200 ml -1020 ml Intake Oral 720 ml 400 ml 480 ml IV Total 0 ml Output Urine Total 3200 ml 2600 ml 1500 ml # Voids 3 # Bowel Movements 1 0 (Michael Benoit MD R1) Result Diagram: 05/05/1752705/05/17527 Objective Remarks GENERAL: 61-year-old male sitting up in his recliner in no acute cardiopulmonary distress. SKIN: Erythema of the anterior lower extremities improved from admission. No ecchymoses or lesions. Cool and dry. HEENT: Atraumatic, normocephalic with EOMI. White plaques on admission of oropharynx resolving with minimal residual. MMM. No JVD or LAD appreciated CARDIOVASCULAR: Distant heart sounds. Regular rate and rhythm without murmurs, gallops, or rubs. RESPIRATORY: Mildly improved air movement, decreased breath sounds bilaterally. No CRW appreciated. Currently requiring 2.5 L of oxygen. GASTROINTESTINAL: Abdomen soft, non-tender, nondistended. No hepato-splenomegaly , or palpable masses. No guarding. Pt with pitting edema to level of bilateral lower extremities. MUSCULOSKELETAL: 2+ pitting edema of lower extremities improved drastically from admission. Currently with 2+ pitting edema to the level just below the knee. No cyanosis. NEUROLOGICAL: Awake and alert. Motor and sensory grossly within normal limits. Normal speech. (Michael Benoit MD R1) A/P Assessment and Plan Patient is a 61-year-old male with past medical history significant for COPD, hypertension, prediabetes presenting due to worsening shortness of breath. Discharge Planning Pending further diuresis and clinical improvement. (Michael Benoit MD R1) Attending Attestation Patient seen and examined. Case reviewed and discussed with the resident team. Agree with plan of care as discussed with me and documented in the resident note. pt improving overall (Michelle Mclaughlin MD) Problem List: (1) Lower extremity edema Status: Acute Plan: Patient with recent lower extremity edema and sacral with echocardiogram. Team to evaluate for other possible etiologies of excessive edema. Possibly related to elevated Pulmonary HTN. UA: Pending Liver ultrasound: Liver demonstrates no abnormality to suggest cirrhosis. Bilateral pleural effusions, right greater than the left Repeat chest x-ray ordered Continue Lasix diuresis (2) CHF (congestive heart failure) Status: Acute Plan: Patient presents with worsening shortness of breath and lower extremity edema. Patient denies history of heart problems. BNP on admission elevated to 1345. -Troponin 0.04-> 0.05-> 0.06 -No acute ST changes on EKG -BNP, 1345, 1931 -TSH within normal limits -Lipid panel: Triglycerides 80, cholesterol 76, LDL 36, HDL 24 -Furosemide 40 mg IV BID -Monitor intake and output -Fluid restriction -Daily weights -Monitor electrolytes Imaging: Echocardiogram 05/03/17: Normal left ventricle systolic function, EF of 5560 percent. Normal left ventricle size. Wall thickness is at the upper limits of normal. Moderate tricuspid regurgitation. Estimated pulmonary arterial pressure is 62 mmHg. Chest x-ray 05/03/17: Mild cardiomegaly with bilateral effusions suggestive of congestive heart failure. Consolidative changes in the lung bases, pneumonia is not excluded. (3) COPD (chronic obstructive pulmonary disease) Status: Chronic Plan: Continue home medications: -Symbicort 2 puffs INH BID -DuoNeb's Q6hrs PRN SOB -Supplemental oxygen as needed -Incentive spirometry -Acapella every 4 hours -Repeat home oxygen walk test 05/06 (4) Oral candidiasis Status: Acute Plan: Patient with white plaques in the posterior oropharynx consistent with candidiasis. Resolved on exam 05/05 -Start Nystatin swish and swallow QID (5) Hyperlipemia Status: Chronic Plan: Continue home medication: -Pravastatin 40 mg PO Daily (6) HTN (hypertension) Status: Chronic Plan: Continue home medications: -Metoprolol 50 mg BID -Clonidine and hydralazine PRN See CHF above (7) FEN/PPX Status: Acute Plan: Fluids: None, pt fluid overloaded Electrolytes: Continue to monitor Nutrition: Heart healthy diet, fluid restricted DVT PPX: Lovenox (Michael Benoit MD R1) Problem Qualifiers (1) CHF (congestive heart failure): Qualified Code: I50.41 - Acute combined systolic and diastolic congestive heart failure Michael Benoit MD R1 May 05, 2017 08:51 Michelle Mclaughlin MD May 08, 2017 12:29
[2017-05-05] MEDS: POTASSIUM CHLORIDE 20 MEQ CONTROLLED RELEASE TAB PO SCH ×2 (08:53→21:25)
[2017-05-05] MEDS: NYSTATIN SUSP 500,000 U/5 ML CUP SWISH-SWAL SCH ×4 (08:54→21:25)
[2017-05-05] MEDS: METOPROLOL TARTRATE 50 MG TAB PO SCH ×2 (08:54→21:24)
[2017-05-05] MEDS: PRAVASTATIN SOD 40 MG TAB PO SCH (08:54)
[2017-05-05] MEDS: CHOLECALCIFEROL (VIT D3) 1000 UNIT TAB PO SCH (08:54)
[2017-05-05] MEDS: ASPIRIN 81 MG CHEW TAB CHEW SCH (08:55)
[2017-05-05] MEDS: BUDESONIDE-FORMOTEROL 160/4.5 MCG INHALER INH SCH ×2 (08:55→21:26)
[2017-05-05] MEDS: FUROSEMIDE 40 MG/4 ML VIAL IVP SCH ×2 (08:55→17:58)
[2017-05-05] MEDS: SODIUM CHLORIDE 0.9% FLUSH 10 ML FLUSH IV FLUSH SCH ×2 (08:55→21:26)
--- NOTE | 2017-05-05 09:37 | RADRPT ---
EXAM DATE/TIME: 05/05/2017 09:22 [facility] COMPARISON: CHEST SINGLE AP, May 03, 2017, 11:16. INDICATIONS : Shortness of breath. MEDICAL HISTORY : Hepatitis C. Hypercholesterolemia. Hypertension. CVA. COPD. Diabetes. SURGICAL HISTORY : Hernia repair. ENCOUNTER: Initial ACUITY: 2 days PAIN SCORE: 0/10 LOCATION: Bilateral chest FINDINGS: Frontal and lateral views of the chest demonstrate a normal-sized cardiac silhouette with tortuous de scending thoracic aorta. Lungs are relatively hyperinflated. There is airspace opacity in the right m iddle lobe, improved compared to the prior study. There is blunting of the costophrenic sulci bilater ally. No pneumothorax is visualized. CONCLUSION: Background emphysema with small bilateral pleural effusions, stable from the prior study. Airspace op acity in the right middle lobe represents either atelectasis or consolidation and has improved. Moe Mckinney MD on May 05, 2017 at 9:33 Board Certified Radiologist. This report was verified electronically.
[2017-05-05] MEDS: ENOXAPARIN SODIUM 40 MG/0.4 ML SYRINGE SQ SCH (15:55)
[2017-05-06] VITALS (12 sets, daily range): BP systolic 148–155; BP diastolic 90–93; PULSE 85–96; RESP 18–20; TEMP 98.1–98.9; O2SAT 90–97
[2017-05-06] MEDS: ACETAMINOPHEN/HYDROcodone 325 MG/5 MG TAB PO PRN (02:48)
[2017-05-06 04:06] LABS: HEMATOCRIT 40.6 % (39.0-51.0); MEAN CELL VOLUME 78.5 FL (80.0-100.0); MEAN CORPUSCULAR HEMOGLOBIN 23.9 PG (27.0-34.0); MEAN CORPUSCULAR HGB CONC 30.5 % (32.0-36.0); PLATELET COUNT 237 TH/MM3 (150-450); RED BLOOD COUNT 5.18 MIL/MM3 (4.50-5.90); RED CELL DISTRIBUTION WIDTH 18.8 % (11.6-17.2); REVIEW FLAG FINAL; WHITE BLOOD COUNT 8.2 TH/MM3 (4.0-11.0)
[2017-05-06 04:36] LABS: BLOOD UREA NITROGEN 18 MG/DL (7-18); CHLORIDE 93 MEQ/L (98-107); GLOMERULAR FILTRATION RATE 54 ML/MIN (>89); POTASSIUM 3.9 MEQ/L (3.5-5.1); SODIUM (NA) 142 MEQ/L (136-145)
[2017-05-06 05:08] LABS: ANION GAP 4 MEQ/L (5-15); BICARBONATE GREATER THAN 45.0 MEQ/L (21.0-32.0)
[2017-05-06] MEDS: FUROSEMIDE 40 MG/4 ML VIAL IVP SCH (09:03)
[2017-05-06] MEDS: POTASSIUM CHLORIDE 20 MEQ CONTROLLED RELEASE TAB PO SCH (09:03)
[2017-05-06] MEDS: PRAVASTATIN SOD 40 MG TAB PO SCH (09:03)
[2017-05-06] MEDS: SODIUM CHLORIDE 0.9% FLUSH 10 ML FLUSH IV FLUSH SCH (09:03)
[2017-05-06] MEDS: NYSTATIN SUSP 500,000 U/5 ML CUP SWISH-SWAL SCH (09:04)
[2017-05-06] MEDS: METOPROLOL TARTRATE 50 MG TAB PO SCH (09:04)
[2017-05-06] MEDS: CHOLECALCIFEROL (VIT D3) 1000 UNIT TAB PO SCH (09:04)
[2017-05-06] MEDS: ASPIRIN 81 MG CHEW TAB CHEW SCH (09:04)
[2017-05-06] MEDS: BUDESONIDE-FORMOTEROL 160/4.5 MCG INHALER INH SCH (09:05)
[2017-05-06] MEDS ORDERED: FURO40TA PO ×2 (10:14→11:15)
[2017-05-06] MEDS ORDERED: ASPI81CH25 CHEW ×2 (10:14→11:15)
--- NOTE | 2017-05-06 10:15 | HHI.DCPOC ---
Discharge Care Plan Diagnosis: (1) COPD (chronic obstructive pulmonary disease) (2) Lower extremity edema (3) Pulmonary congestion (4) Pulmonary hypertension Goals to Promote Your Health * To prevent worsening of your condition and complications * To maintain your health at the optimal level Directions to Meet Your Goals Take your medications as prescribed Follow your dietary instruction Follow activity as directed Keep your appointments as scheduled Take your immunizations and boosters as scheduled If your symptoms worsen call your PCP, if no PCP go to Urgent Care Center or Emergency Room Smoking is Dangerous to Your Health. Avoid second hand smoke Call the 24-hour hour crisis hotline for domestic abuse at Timur Ivory MD R2 May 06, 2017 10:15
--- NOTE | 2017-05-06 10:56 | HHI.FPPN ---
Subjective Remarks Edema is significantly improved. Still has pitting edema up to shins but much better than at admission. His breathing is back to baseline. He uses 2L oxygen at home. He has been walking around without much difficulty. He has orthopnea at baseline. He reports no wheezing. No chest pain. No dyspnea. No abdominal pain or calf tenderness. Wants to go home today. [facility] (Timur Ivory MD R2) Objective Vitals Vital Signs Date Time Temp Pulse Resp B/P Pulse Ox O2 Delivery O2 Flow Rate FiO2 05/06/17 10:04 92 05/06/17 09:00 96 05/06/17 08:08 90 Nasal Cannula 4.00 05/06/17 08:00 98.9 95 18 155/93 95 05/06/17 08:00 95 05/06/17 07:54 90 05/06/17 07:00 Nasal Cannula 2.00 05/06/17 06:00 85 05/06/17 05:00 90 05/06/17 04:00 Nasal Cannula 2.00 05/06/17 04:00 86 05/06/17 04:00 98.1 86 18 148/90 97 05/06/17 03:00 91 05/06/17 02:00 89 05/06/17 01:00 93 05/06/17 00:00 90 05/06/17 00:00 Nasal Cannula 2.00 05/06/17 00:00 98.1 90 20 149/93 97 05/05/17 23:00 100 05/05/17 22:00 100 05/05/17 21:00 102 05/05/17 20:30 96 Nasal Cannula 3.00 05/05/17 20:00 Nasal Cannula 2.00 05/05/17 20:00 98.4 102 18 180/109 95 05/05/17 20:00 101 05/05/17 18:12 106 05/05/17 17:10 99 05/05/17 16:14 98 05/05/17 15:28 98.3 100 18 154/79 93 05/05/17 15:28 93 Nasal Cannula 2.00 05/05/17 15:28 100 05/05/17 14:04 107 05/05/17 13:55 18 05/05/17 13:03 100 05/05/17 12:02 99 05/05/17 11:13 94 Nasal Cannula 2.00 05/05/17 11:13 98.4 76 18 170/68 95 05/05/17 11:13 76 I/O 05/05/17 05/05/17 05/05/17 05/06/17 05/06/17 05/06/17 07:00 15:00 23:00 07:00 15:00 23:00 Intake Total 480 ml 740 ml 480 ml Output Total 1500 ml 1850 ml 1500 ml Balance -1020 ml -1110 ml -1020 ml Intake Oral 480 ml 740 ml 480 ml IV Total 0 ml 0 ml Output Urine Total 1500 ml 1850 ml 1500 ml # Bowel Movements 0 1 0 (Timur Ivory MD R2) Result Diagram: 05/06/17 0330 05/06/17 0330 Imaging Last 72 hours Impressions Liver Ultrasound 05/05/17 0000 Signed Impressions: Service Date/Time: Friday, May 05, 2017 07:44 - CONCLUSION: 1. Liver demonstrates no abnormality to suggest cirrhosis. 2. Bilateral pleural effusions, right larger than left. Moe Mckinney MD Chest X-Ray 05/05/17 0000 Signed Impressions: Service Date/Time: Friday, May 05, 2017 09:22 - CONCLUSION: Background emphysema with small bilateral pleural effusions, stable from the prior study. Airspace opacity in the right middle lobe represents either atelectasis or consolidation and has improved. Moe Mckinney MD Chest X-Ray 05/03/17 1113 Signed Impressions: Service Date/Time: April 11:16 - CONCLUSION: 1. Mild cardiomegaly with bilateral effusion suggesting possible congestive failure. There are however consolidative changes in the lung bases and underlying pneumonia is not excluded. Alvarez Stein MD Objective Remarks GENERAL: Walking around room, no distress, has on nasal cannula, getting 2L O2, no respiratory distress. SKIN: No rashes or lesions HEENT: Normocephalic, no nasal discharge, normal pharynx NECK: Mild JVD present, no thyromegaly CARDIOVASCULAR: RRR, no murmur, rubs, or gallops RESPIRATORY: Fine crackles in lung bases, no wheezing, no respiratory distress, on 2L via nasal cannula, walking around room without difficulty GASTROINTESTINAL: Abdomen soft, non-tender, nondistended. No hepato-splenomegaly , or palpable masses. No guarding. Pt with pitting edema to shins. MUSCULOSKELETAL: 2+ pitting edema of lower extremities improved significantly from admission. Currently with 2+ pitting edema to the level just below the knee. No cyanosis. NEUROLOGICAL: Awake and alert. Motor and sensory grossly within normal limits. Normal speech. (Timur Ivory MD R2) A/P Assessment and Plan 61-year-old male with past medical history significant for COPD, hypertension, prediabetes presenting due to worsening shortness of breath and significant lower extremity edema and pulmonary congestion. Found to have elevated pulmonary pressures, increased BNP, preserved ejection fraction. Discharge Planning Will be discharged today [facility]. Will be getting diuretic therapy and will need a follow up BMP to check electrolytes in 3 to 5 days. He has oxygen at home and will continue to use 2L O2 continuously. (Timur Ivory MD R2) Attending Attestation Patient seen and examined. Case reviewed and discussed with the resident team. Agree with plan of care as discussed with me and documented in the resident note. he is very eager to go home today. He has oxygen at home. He has a copy of his echocardiogram for [facility] and will get help from them right away (Michelle Mclaughlin MD) Problem List: (1) Lower extremity edema Status: Acute Plan: Significant lower extremity edema and increasing dyspnea that are much improved since admission. ECHO showing elevated pulmonary artery pressures with preserved ejection fraction. BNP is elevated suggesting possible diastolic dysfunction with systolic function. Also reports a history of loud snoring, may be an element of sleep apnea. Intrinsic lung disease, i.e. COPD can also be contributing to symptomatology. No proteinuria to suggest nephrotic syndrome. Serum albumin is low, suggesting lowered oncotic pressure intravascularly. On exam he does have fine crackles in bases and pulmonary congestion on imagining, suggesting pulmonary/cardio problem. Creatinine also mildly elevated suggesting intrinsic kidney disease versus decreased perfusion of kidneys from cardiopulmonary source. Liver demonstrates no cirrhosis and there is no ascites on exam. No thyroid disorder to suggest myxedema. This [facility] and he has an appointment on [facility]. Will transition to oral Lasix, 40 mg daily - BMP in 3 to 5 days to monitor electrolytes while on diuretics - Recommended an exercise routine to lower morbidity/mortality from possible diastolic heart dysfunction - Would benefit from sleep study as an outpatient to rule out sleep apnea - Continue daily aspirin for high CVD risk - Continue O2 therapy at home, to be [facility] evaluated [facility] the [facility] (2) CHF (congestive heart failure) Status: Acute Plan: Likely diastolic dysfunction with preserved ejection fraction. Echocardiogram 05/03/17: Normal left ventricle systolic function, EF of 5560 percent. Normal left ventricle size. Wall thickness is at the upper limits of normal. Moderate tricuspid regurgitation. Estimated pulmonary arterial pressure is 62 mmHg. Chest x-ray 05/03/17: Mild cardiomegaly with bilateral effusions suggestive of congestive heart failure. Consolidative changes in the lung bases, pneumonia is not excluded. - Recommend daily exercise - See workup above under edema - Monitor and control hypertension as an outpatient (3) COPD (chronic obstructive pulmonary disease) Status: Chronic Plan: History of COPD, no acute exacerbation -Symbicort 2 puffs INH BID -Albuterol PRN -Supplemental oxygen at home (4) HTN (hypertension) Status: Chronic Plan: Continue home medications: -Metoprolol 50 mg BID (5) FEN/PPX Status: Acute Plan: Fluids: PO Electrolytes: check BMP in 3 to 5 days while on Lasix Nutrition: Heart healthy diet DVT PPX: Lovenox (Timur Ivory MD R2) Problem Qualifiers (1) CHF (congestive heart failure): Qualified Code: I50.41 - Acute combined systolic and diastolic congestive heart failure Timur Iovry MD R2 May 06, 2017 10:56 Michelle Mclaughlin MD May 08, 2017 12:31
--- NOTE | 2017-05-06 11:49 | HHI.DS ---
Discharge Summary Admission Date May 03, 2017 at 12:59 Discharge Date: May 06, 2017 Admitting Diagnosis (1) Lower extremity edema Diagnosis: Principal Plan: Significant lower extremity edema and increasing dyspnea that are much improved since admission. ECHO showing elevated pulmonary artery pressures with preserved ejection fraction. BNP is elevated suggesting possible diastolic dysfunction with systolic function. Also reports a history of loud snoring, may be an element of sleep apnea. Intrinsic lung disease, i.e. COPD can also be contributing to symptomatology. No proteinuria to suggest nephrotic syndrome. Serum albumin is low, suggesting lowered oncotic pressure intravascularly. On exam he does have fine crackles in bases and pulmonary congestion on imagining, suggesting pulmonary/cardio problem. Creatinine also mildly elevated suggesting intrinsic kidney disease versus decreased perfusion of kidneys from cardiopulmonary source. Liver demonstrates no cirrhosis and there is no ascites on exam. No thyroid disorder to suggest myxedema. This will need further workup at [facility] and he has an appointment on Sunday. Will transition to oral Lasix, 40 mg daily - BMP in 3 to 5 days to monitor electrolytes while on diuretics - Recommended an exercise routine to lower morbidity/mortality from possible diastolic heart dysfunction - Would benefit from sleep study as an outpatient to rule out sleep apnea - Continue daily aspirin for high CVD risk - Continue O2 therapy at home, to be further evaluated at the [facility] (2) CHF (congestive heart failure) Diagnosis: Principal Plan: Likely diastolic dysfunction with preserved ejection fraction. Echocardiogram 05/03/17: Normal left ventricle systolic function, EF of 5560 percent. Normal left ventricle size. Wall thickness is at the upper limits of normal. Moderate tricuspid regurgitation. Estimated pulmonary arterial pressure is 62 mmHg. Chest x-ray 05/03/17: Mild cardiomegaly with bilateral effusions suggestive of congestive heart failure. Consolidative changes in the lung bases, pneumonia is not excluded. - Recommend daily exercise - See workup above under edema - Monitor and control hypertension as an outpatient (3) COPD (chronic obstructive pulmonary disease) Diagnosis: Principal Plan: History of COPD, no acute exacerbation -Symbicort 2 puffs INH BID -Albuterol PRN -Supplemental oxygen at home (4) HTN (hypertension) Diagnosis: Secondary Plan: Continue home medications: -Metoprolol 50 mg BID (5) FEN/PPX Diagnosis: Secondary Plan: Fluids: PO Electrolytes: check BMP in 3 to 5 days while on Lasix Nutrition: Heart healthy diet DVT PPX: Lovenox Consultants none Procedures none Brief History Patient is a 61-year-old male with past medical history significant for COPD, hypertension, prediabetes presenting due to worsening shortness of breath. Patient was seen earlier today at [facility] and found to have a low oxygen saturation of 84%. He was transported to the ED via [facility]. He reports that over the past 3 weeks he has had progressively worsening shortness of breath. He attributed this to his COPD. His legs have been swollen for the same amount of time. He reports that the swelling initially started in his feet and ankles and gradually worsened. He reports that he has been drinking more fluids over the past few weeks. He drinks about 34 12 ounce bottles of water daily, as well as a similar sized bottle of the Gatorade. He denies prior history of lower extremity edema, heart problems. CBC/BMP: 05/06/17 0330 05/06/17 0330 Significant Findings Laboratory Tests Test 05/03/17 05/03/17 05/04/17 05/05/17 19:01 23:31 06:46 05:28 Creatine Kinase MB 6.2 NG/ML 5.8 NG/ML (0.5-3.6) (0.5-3.6) Troponin I 0.06 NG/ML (0.02-0.05) Hemoglobin 12.4 GM/DL 12.9 GM/DL (13.0-17.0) (13.0-17.0) Mean Corpuscular Volume 79.3 FL 77.2 FL (80.0-100.0) (80.0-100.0) Mean Corpuscular Hemoglobin 24.2 PG 24.6 PG (27.0-34.0) (27.0-34.0) Mean Corpuscular Hemoglobin 30.5 % 31.8 % Concent (32.0-36.0) (32.0-36.0) Red Cell Distribution Width 18.8 % 19.0 % (11.6-17.2) (11.6-17.2) Neutrophils (%) (Auto) 70.2 % (16.0-70.0) Monocytes (%) (Auto) 12.6 % (0.0-8.0) Chloride Level 95 MEQ/L 93 MEQ/L (98-107) (98-107) Carbon Dioxide Level 37.5 MEQ/L GREATER THAN (21.0-32.0) 45.0 MEQ/L (21.0-32.0) Blood Urea Nitrogen 22 MG/DL (7-18) Creatinine 1.38 MG/DL 1.48 MG/DL (0.60-1.30) (0.60-1.30) Estimat Glomerular Filtration 52 ML/MIN (>89) 48 ML/MIN (>89) Rate Calcium Level 8.0 MG/DL (8.5-10.1) B-Type Natriuretic Peptide 1931 PG/ML 1431 PG/ML (0-100) (0-100) Total Protein 6.3 GM/DL (6.4-8.2) Albumin 2.8 GM/DL (3.4-5.0) Cholesterol Level 76 MG/DL (120-200) HDL Cholesterol 24.3 MG/DL (40.0-60.0) Anion Gap 4 MEQ/L (5-15) Random Glucose 121 MG/DL (74-106) Test 05/06/17 03:30 Hemoglobin 12.4 GM/DL (13.0-17.0) Mean Corpuscular Volume 78.5 FL (80.0-100.0) Mean Corpuscular Hemoglobin 23.9 PG (27.0-34.0) Mean Corpuscular Hemoglobin 30.5 % Concent (32.0-36.0) Red Cell Distribution Width 18.8 % (11.6-17.2) Chloride Level 93 MEQ/L (98-107) Carbon Dioxide Level GREATER THAN 45.0 MEQ/L (21.0-32.0) Anion Gap 4 MEQ/L (5-15) Creatinine 1.34 MG/DL (0.60-1.30) Estimat Glomerular Filtration 54 ML/MIN (>89) Rate Random Glucose 126 MG/DL (74-106) Calcium Level 8.4 MG/DL (8.5-10.1) B-Type Natriuretic Peptide 1124 PG/ML (0-100) PE at Discharge GENERAL: Walking around room, no distress, has on nasal cannula, getting 2L O2, no respiratory distress. SKIN: No rashes or lesions HEENT: Normocephalic, no nasal discharge, normal pharynx NECK: Mild JVD present, no thyromegaly CARDIOVASCULAR: RRR, no murmur, rubs, or gallops RESPIRATORY: Fine crackles in lung bases, no wheezing, no respiratory distress, on 2L via nasal cannula, walking around room without difficulty GASTROINTESTINAL: Abdomen soft, non-tender, nondistended. No hepato-splenomegaly , or palpable masses. No guarding. Pt with pitting edema to shins. MUSCULOSKELETAL: 2+ pitting edema of lower extremities improved significantly from admission. Currently with 2+ pitting edema to the level just below the knee. No cyanosis. NEUROLOGICAL: Awake and alert. Motor and sensory grossly within normal limits. Normal speech. Hospital Course 61 year old male with a history of COPD and hypertension presented with dyspnea and significant peripheral edema. BNP was significantly elevated. Imagining showed pulmonary congestion bilaterally. ECHO was done showing preserved ejection fraction but significantly elevated pulmonary pressures. He was treated with Lasix IV 40 mg bid with significant improvement in edema. He was switched to Lasix PO 40 mg daily and will have a BMP in 3 to 5 days to monitor electrolytes while on a diuretic. Differential remains wide, including diastolic dysfunction with preserved ejection fraction, sleep apnea (he has a significant history of snoring), intrinsic lung disease leading to increased pulmonary pressures, hypoalbuminemia with decreased oncotic pressures intravascularly. Workup showed no significant proteinuria, making nephrotic syndrome unlikely. Liver ultrasound showed no cirrhosis. TSH was normal ruling out thyroid myxedema. Creatinine moderately increased suggesting possible renal disease contributing to edema, however kidney disease seems chronic. He will pursue further workup at the [facility] and has an appointment on Sunday. He has an oxygen tank at home and is using 2L per his report. He was recommended to start an exercise regime as exercise can improve morbidity/mortality in case of diastolic dysfunction. He will also need tight control of blood pressures to improve prognosis. Pt Condition on Discharge: Fair Discharge Disposition: Discharge Home Discharge Instructions DIET: Follow Instructions for: Heart Healthy Diet Speech Therapy-Diet Recommends: Regular Activities you can perform: Regular-No Restrictions Follow up Referrals: PCP Follow-up - 1 Week New Orders: BASIC METABOLIC PROF - 3-5 Days New Medications: Furosemide (Furosemide) 40 Mg Tab 40 MG PO DAILY take as prescribed #30 Ref 0 TAB Aspirin (Aspirin Low Strength) 81 Mg Chew 81 MG CHEW DAILY take as prescribed #30 EA Continued Medications: Budesonide-Formoterol Inh (Symbicort Inh) 160-4.5 Mcg/Act Aero 2 PUFF INH Q12HR Rinse mouth after each use #1 Ref 0 INHALER Cholecalciferol (Vitamin D3) 1,000 Unit Tab 2000 UNITS PO DAILY Nutritional Supplement #1 Ref 0 BOTTLE Ipratropium-Albuterol Inh (Combivent Respimat Inh) 20-100 Jail/Act Aero 1 PUFF INH Q4HR Do not exceed 6 puffs/24hrs Shortness of Breath #1 Ref 0 INHALER Ipratropium-Albuterol Neb (Duoneb) 0.5-2.5 Mg/3 Ml Neb 1 VIAL NEB BID PRN SHORTNESS OF BREATH #30 Ref 0 NEBULE Metoprolol Tartrate (Metoprolol Tartrate) 100 Mg Tab 50 MG PO BID Blood Pressure Management #60 Ref 0 TAB Pravastatin (Pravastatin) 40 Mg Tab 40 MG PO DAILY Cholesterol Management #30 Ref 0 TAB Timur Ivory MD R2 May 06, 2017 11:49
[2017-05-08 11:52] LABS: HCV RNA PCR IU/ML LESS THAN 15 IU/mL (()); HCV RNA PCR LOGIU/ML LESS THAN 1.18 (())
== END 2017-05-06 12:07 | disposition home or self-care (01) | DRG 291 ==
LOC: NEPC 11:02 → NEDA 12:59 → HCIS 15:12
PROVIDERS: ADMIT Family Medicine; ATTEND Family Medicine
DX: I11.0 Hypertensive heart disease with heart failure (principal); J96.01 Acute respiratory failure with hypoxia; B37.0 Candidal stomatitis; I50.31 Acute diastolic (congestive) heart failure; J44.9 Chronic obstructive pulmonary disease, unspecified; I07.1 Rheumatic tricuspid insufficiency; Z99.81 Dependence on supplemental oxygen; E78.5 Hyperlipidemia, unspecified; G47.30 Sleep apnea, unspecified; Z86.19 Personal history of other infectious and parasitic diseases; Z86.73 Personal history of transient ischemic attack (TIA), and cerebral infarction without residual deficits; Z87.891 Personal history of nicotine dependence
CPT/HCPCS: 71010; 71020; 76705; 80048; 80053; 80061; 81001; 82550; 82552; 83735; 83880; 84443; 84484; 85025; 85027; 85610; 85730; 87522; 93005; 93306; 94150; 94620; 94640; 94667; 94668; J1650; J1940

== ENCOUNTER 2018-04-18 18:04 | Inpatient (IN) | payer OTHER ==
[~2018-04-18] VITALS: Ht 172.7 cm; Wt 81.1 kg
[~2018-04-18 18:04] MED LIST changes: +ASPI81CH25 CHEW; -ECASA PO; +FURO40TA PO; +IPRAAER INH; +IPRASOL NEB; +METO100T PO; -METO50TA PO; +PRAV40TA2 PO; -SOFOSBUVIR; +SYMB160A INH; +VITA100018 PO; -WARF5 PO; -[UNRECOGNIZED DRUG - CODE] PO
[2018-04-18 18:13] VITALS: BP 132/91; PULSE 127; RESP 34; TEMP 98.4; O2SAT 72
[2018-04-18 18:14] VITALS: RESP 36; O2SAT 97
[2018-04-18] MEDS: SODIUM CHLORIDE 0.9% FLUSH 10 ML FLUSH IVF PRN ×2 (18:26→21:03)
[2018-04-18 18:30] VITALS: O2SAT 98
[2018-04-18] MEDS ORDERED: RESP: ALBUTEROL 2.5 MG/IPRATROPIUM 0.5 MG NEB (SCH) INH ONE (18:30)
[2018-04-18] MEDS: RESP: ALBUTEROL 2.5 MG/3 ML NEB (SCH) INH ×2 (18:30→18:32)
[2018-04-18 18:32] VITALS: BP 182/83; PULSE 122; RESP 28; O2SAT 98
--- NOTE | 2018-04-18 18:41 | RADRPT ---
EXAM DATE: 04/18/2018 6:33 PM EDT AGE/SEX: 62 years / Male INDICATIONS: Short of breath CLINICAL DATA: This is the patient's initial encounter. Patient reports that signs and symptoms have been present for 1 day and indicates a pain score of 0/10. MEDICAL/SURGICAL HISTORY: . Hepatitis C. Hypercholesterolemia. Hypertension. CVA. COPD. Diabet es . Hernia repair COMPARISON: [facility] [place], CHEST SINGLE AP, 05/03/2017. [facility] [place], CHEST PA & LAT, 05/05/2017. . FINDINGS: Portable AP view of the chest demonstrates a normal-sized cardiac silhouette with tortuous descending thoracic aorta. Lungs are hyperexpanded with chronic interstitial changes at the lung bases. No pleu ral effusion, airspace consolidation, or pneumothorax is identified. Bones and soft tissues demonstra te no acute abnormality. CONCLUSION: No acute pulmonary abnormality is identified. Chronic lung findings indicate obstructive airways dise ase/emphysema with possible interstitial lung disease. Electronically signed by: Moe Mckinney MD 04/18/2018 6:40 PM EDT
[2018-04-18 18:51] LABS: AUTOMATED NEUTROPHIL # 7.7 TH/MM3 (1.8-7.7); BASOPHIL % 0.3 % (0.0-2.0); EOSINOPHIL # 0.1 TH/MM3 (0-0.4); HEMATOCRIT 48.8 % (39.0-51.0); HEMOGLOBIN 16.1 GM/DL (13.0-17.0); LYMPH % 11.5 % (9.0-44.0); LYMPHOCYTE # 1.2 TH/MM3 (1.0-4.8); MEAN CELL VOLUME 90.1 FL (80.0-100.0); MEAN CORPUSCULAR HEMOGLOBIN 29.7 PG (27.0-34.0); MONO % 13.2 % (0.0-8.0); MONOCYTE # 1.4 TH/MM3 (0-0.9); PLATELET COUNT 351 TH/MM3 (150-450); RED BLOOD COUNT 5.42 MIL/MM3 (4.50-5.90); RED CELL DISTRIBUTION WIDTH 14.1 % (11.6-17.2); WHITE BLOOD COUNT 10.4 TH/MM3 (4.0-11.0)
[2018-04-18 19:11] LABS: ALT (GPT) 19 U/L (12-78)
[2018-04-18 19:17] LABS: ALBUMIN 3.2 GM/DL (3.4-5.0); ALKALINE PHOSPHATASE 70 U/L (45-117); AST (GOT) 31 U/L (15-37); BICARBONATE 34.1 MEQ/L (21.0-32.0); BLOOD UREA NITROGEN 23 MG/DL (7-18); CALCIUM 10.1 MG/DL (8.5-10.1); CHLORIDE 91 MEQ/L (98-107); CREATININE 1.03 MG/DL (0.60-1.30); GLOMERULAR FILTRATION RATE 73 ML/MIN (>89); GLUCOSE,RANDOM 114 MG/DL (74-106); MAGNESIUM 2.3 MG/DL (1.5-2.5); SODIUM (NA) 136 MEQ/L (136-145); TOTAL BILIRUBIN ADULT 0.6 MG/DL (0.2-1.0); TOTAL PROTEIN 9.1 GM/DL (6.4-8.2); TROPONIN I LESS THAN 0.02 NG/ML (0.02-0.05)
--- NOTE | 2018-04-18 19:18 | PD ---
HPI Chief Complaint: Respiratory Distress Time Seen by Provider: 18:16 Travel History International Travel<30 days: No Contact w/Intl Traveler<30days: No Traveled to known affect area: No History of Present Illness HPI This is a 62-year-old male with a history of COPD, CHF, presented in severe respiratory distress. According to the patient over the last 24 hours he started becoming increasingly short of breath. He states he [facility] however he was so short of breath he could not wait for them to arrive. Patient states he called his son and his son arrived he found his dad in severe distress and diaphoretic. He states he immediately drove him here. When patient arrived he had an O2 sat in the 80s and was tachypneic and tachycardic. He denies any chest pain, chest pressure. He does report that he has had swelling of his feet over the last couple days. PFSH Past Medical History Hx Anticoagulant Therapy: Yes (ASA) Asthma: Yes Cancer: No Cardiovascular Problems: Yes High Cholesterol: Yes COPD: Yes Cerebrovascular Accident: Yes (TIA) Diminished Hearing: No Endocrine: No Gastrointestinal Disorders: Yes Genitourinary: No Hypertension: Yes Immune Disorder: No Musculoskeletal: No Neurologic: Yes (TIA ) Psychiatric: No Reproductive: No Respiratory: Yes (COPD) Tetanus Vaccination: > 5 Years Influenza Vaccination: Yes Past Surgical History Other Surgery: Yes (HERNIA REPAIR X2) Social History Alcohol Use: No Tobacco Use: Yes ( 1/2 PACK) Substance Use: No Allergies-Medications (Allergen,Severity, Reaction): Coded Allergies: No Known Allergies (Unverified , 05/03/17) Reported Meds & Prescriptions Reported Meds & Active Scripts Active Furosemide 40 Mg Tab 40 Mg PO DAILY take as prescribed Aspirin Low Strength (Aspirin) 81 Mg Chew 81 Mg CHEW DAILY take as prescribed Reported Vitamin D3 (Cholecalciferol) 1,000 Unit Tab 2,000 Units PO DAILY Pravastatin 40 Mg Tab 40 Mg PO DAILY Metoprolol Tartrate 100 Mg Tab 50 Mg PO BID Symbicort Inh (Budesonide/Formoterol Fumarate) 160-4.5 Mcg/Act Aero 2 Puff INH Q12HR Rinse mouth after each use Combivent Respimat Inh (Ipratropium-Albuterol Inh) 20-100 Snf/Act Aero 1 Puff INH Q4HR Do not exceed 6 puffs/24hrs Duoneb (Ipratropium-Albuterol Neb) 0.5-2.5 Mg/3 Ml Neb 1 Vial NEB BID PRN Review of Systems Except as stated in HPI: all other systems reviewed are Neg General / Constitutional: No: Fever, Chills HENT: Positive: Lightheadedness, No: Headaches, Neck Pain Cardiovascular: Positive: Palpitations, Tachycardia, No: Chest Pain or Discomfort Respiratory: Positive: Cough, Shortness of Breath, Wheezing Gastrointestinal: No: Nausea, Vomiting, Abdominal Pain Genitourinary: No: Decreased Urinary Output Musculoskeletal: Positive: Edema, No: Weakness, Pain Neurologic: Positive: Dizziness, No: Weakness, Headache Physical Exam Narrative GENERAL: Well-developed well-nourished male in moderate to severe respiratory distress. SKIN: Focused skin assessment warm/dry. HEAD: Atraumatic. Normocephalic. EYES: Pupils equal and round. No scleral icterus. No injection or drainage. ENT: No nasal bleeding or discharge. Mucous membranes pink and moist. NECK: Trachea midline. No JVD. Supple. CARDIOVASCULAR: Sinus tachycardia with occasional PVCs. RESPIRATORY: Diffuse expiratory wheezes with decreased breath sounds at the bilateral bases. No obvious audible rales appreciated. GASTROINTESTINAL: Abdomen soft, non-tender, nondistended. Hepatic and splenic margins not palpable. MUSCULOSKELETAL: No obvious deformities. No clubbing. No cyanosis. Trace edema pretibial bilaterally. NEUROLOGICAL: Awake and short of breath with single sentences no obvious cranial nerve deficits. Motor grossly within normal limits. Normal speech. Data Data Last Documented VS Vital Signs Date Time Temp Pulse Resp B/P (MAP) Pulse Ox O2 Delivery O2 Flow Rate FiO2 04/18/18 18:32 122 28 182/83 (116) 98 BiPAP 100 04/18/18 18:14 12.00 04/18/18 18:13 98.4 Orders Orders Complete Blood Count With Diff (04/18/18 18:16) Comprehensive Metabolic Panel (04/18/18 18:16) B-Type Natriuretic Peptide (04/18/18 18:16) Magnesium (Mg) (04/18/18 18:16) Ckmb (Isoenzyme) Profile (04/18/18 18:16) Troponin I (04/18/18 18:16) Arterial Blood Gas (Abg) (04/18/18 18:16) Blood Culture (04/18/18 18:16) Iv Access Insert/Monitor (04/18/18 18:16) Ecg Monitoring (04/18/18 18:16) Oximetry (04/18/18 18:16) Oxygen Administration (04/18/18 18:16) Chest, Single Ap (04/18/18 18:16) Sodium Chloride 0.9% Flush (Ns Flush) (04/18/18 18:30) Albuterol-Ipratropium Neb (Duoneb Neb) (04/18/18 18:30) Albuterol Neb (Albuterol Neb) (04/18/18 18:30) Resp Bipap / Cpap Non Invas Vt (04/18/18 18:16) Labs Laboratory Tests Test 04/18/18 18:25 White Blood Count 10.4 TH/MM3 Red Blood Count 5.42 MIL/MM3 Hemoglobin 16.1 GM/DL Hematocrit 48.8 % Mean Corpuscular Volume 90.1 FL Mean Corpuscular Hemoglobin 29.7 PG Mean Corpuscular Hemoglobin Concent 33.0 % Red Cell Distribution Width 14.1 % Platelet Count 351 TH/MM3 Mean Platelet Volume 8.0 FL Neutrophils (%) (Auto) 74.0 % Lymphocytes (%) (Auto) 11.5 % Monocytes (%) (Auto) 13.2 % Eosinophils (%) (Auto) 1.0 % Basophils (%) (Auto) 0.3 % Neutrophils # (Auto) 7.7 TH/MM3 Lymphocytes # (Auto) 1.2 TH/MM3 Monocytes # (Auto) 1.4 TH/MM3 Eosinophils # (Auto) 0.1 TH/MM3 Basophils # (Auto) 0.0 TH/MM3 CBC Comment DIFF FINAL Differential Comment Alanine Aminotransferase (ALT/SGPT) 19 U/L [facility] Medical Decision Making Medical Screen Exam Complete: Yes Emergency Medical Condition: Yes Differential Diagnosis CHF versus COPD versus ACS Narrative Course 62-year-old male presents with complaints of shortness of breath. Patient's O2 sats were in the 80s on room air. He was initially placed on a nonrebreather however shortly thereafter we placed him on BiPAP. Nebulizer treatments were given. Patient is tolerating BiPAP extremely well. His sats have come up into the 90s. Labs are pending at this time. Chest x-ray reveals COPD with mild interstitial changes. He has been given 40 of Lasix IV x1 dose. The patient was signed out to Dr. Jaqueline Kate who will follow up on the results. He will definitely need to be admitted. Diagnosis Primary Impression: Respiratory distress with hypoxia Additional Impression: Congestive heart failure Griffin Ann MD April 18, 2018 19:18
[2018-04-18] MEDS ORDERED: FUROSEMIDE 40 MG/4 ML VIAL IV PUSH ONE (19:30)
--- NOTE | 2018-04-18 20:04 | PD ---
Physical Exam Date Seen by Provider: April 18, 2018 Time Seen by Provider: 20:02 Narrative Accepted in transfer of care from Dr. Ann Data Data Last Documented VS Vital Signs Date Time Temp Pulse Resp B/P (MAP) Pulse Ox O2 Delivery O2 Flow Rate FiO2 04/18/18 20:31 99 14 175/87 (116) 99 BiPAP 04/18/18 18:32 100 04/18/18 18:14 12.00 04/18/18 18:13 98.4 Orders Orders Complete Blood Count With Diff (04/18/18 18:16) Comprehensive Metabolic Panel (04/18/18 18:16) B-Type Natriuretic Peptide (04/18/18 18:16) Magnesium (Mg) (04/18/18 18:16) Ckmb (Isoenzyme) Profile (04/18/18 18:16) Troponin I (04/18/18 18:16) Arterial Blood Gas (Abg) (04/18/18 18:16) Blood Culture (04/18/18 18:16) Iv Access Insert/Monitor (04/18/18 18:16) Ecg Monitoring (04/18/18 18:16) Oximetry (04/18/18 18:16) Oxygen Administration (04/18/18 18:16) Chest, Single Ap (04/18/18 18:16) Sodium Chloride 0.9% Flush (Ns Flush) (04/18/18 18:30) Albuterol-Ipratropium Neb (Duoneb Neb) (04/18/18 18:30) Albuterol Neb (Albuterol Neb) (04/18/18 18:30) Resp Bipap / Cpap Non Invas Vt (04/18/18 18:16) CKMB (04/18/18 18:25) CKMB% (04/18/18 18:25) Furosemide Inj (Lasix Inj) (04/18/18 19:30) Electrocardiogram (04/18/18 18:13) Admit Order (Ed Use Only) (04/18/18 ) Hydraulic Modeling Engineer / Telemetry [id number] (04/18/18 21:57) Diet Heart Healthy (04/19/18 Breakfast) Activity Oob With Assistance (04/18/18 21:57) Notify Dr: Other (04/18/18 21:57) Labs Laboratory Tests Test 04/18/18 18:25 04/18/18 20:30 White Blood Count 10.4 TH/MM3 Red Blood Count 5.42 MIL/MM3 Hemoglobin 16.1 GM/DL Hematocrit 48.8 % Mean Corpuscular Volume 90.1 FL Mean Corpuscular Hemoglobin 29.7 PG Mean Corpuscular Hemoglobin Concent 33.0 % Red Cell Distribution Width 14.1 % Platelet Count 351 TH/MM3 Mean Platelet Volume 8.0 FL Neutrophils (%) (Auto) 74.0 % Lymphocytes (%) (Auto) 11.5 % Monocytes (%) (Auto) 13.2 % Eosinophils (%) (Auto) 1.0 % Basophils (%) (Auto) 0.3 % Neutrophils # (Auto) 7.7 TH/MM3 Lymphocytes # (Auto) 1.2 TH/MM3 Monocytes # (Auto) 1.4 TH/MM3 Eosinophils # (Auto) 0.1 TH/MM3 Basophils # (Auto) 0.0 TH/MM3 CBC Comment DIFF FINAL Differential Comment Blood Urea Nitrogen 23 MG/DL Creatinine 1.03 MG/DL Random Glucose 114 MG/DL Total Protein 9.1 GM/DL Albumin 3.2 GM/DL Calcium Level 10.1 MG/DL Magnesium Level 2.3 MG/DL Alkaline Phosphatase 70 U/L Aspartate Amino Transf (AST/SGOT) 31 U/L Alanine Aminotransferase (ALT/SGPT) 19 U/L Total Bilirubin 0.6 MG/DL Sodium Level 136 MEQ/L Potassium Level 4.9 MEQ/L Chloride Level 91 MEQ/L Carbon Dioxide Level 34.1 MEQ/L Anion Gap 11 MEQ/L Estimat Glomerular Filtration Rate 73 ML/MIN Total Creatine Kinase 156 U/L Creatine Kinase MB 6.6 NG/ML Troponin I LESS THAN 0.02 NG/ML B-Type Natriuretic Peptide 64 PG/ML Blood Gas Puncture Site LT RADIAL Blood Gas Patient Temperature 98.6 Blood Gas HCO3 42 mmol/L Blood Gas Base Excess 15.3 mmol/L Blood Gas Oxygen Saturation 98 % Arterial Blood pH 7.31 Arterial Blood Partial Pressure CO2 87 mmHg Arterial Blood Partial Pressure O2 169 mmHG Arterial Blood Oxygen Content 20.3 Vol % Arterial Blood Carboxyhemoglobin 1.2 % Arterial Blood Methemoglobin 0.6 % Blood Gas Hemoglobin 14.6 G/DL Oxygen Delivery Device BiPAP Blood Gas Ventilator Setting 12IPAP/5EPAP Blood Gas Inspired Oxygen 100 % [facility] Medical Record Reviewed: Yes Supervised Visit with KATERIN: No Differential Diagnosis Accepted transfer of care from Dr. Ann; please refer to his dictation Narrative Course Accepted transfer of care from Dr. Ann; follow-up of pending labs diagnostics and patient disposition with plan for admission for exacerbation of COPD mild pulmonary edema status post updraft treatments Lasix diuresis and is currently on BiPAP with improved symptoms Physician Communication Physician Communication call placed to [facility] service Diagnosis Primary Impression: Respiratory distress with hypoxia Additional Impressions: Congestive heart failure COPD exacerbation Hypercapnia Admitting Information Admitting Physician Requests: Admit Jaqueline Kate MD April 18, 2018 20:04
[2018-04-18 20:31] VITALS: BP 175/87; PULSE 99; RESP 14; O2SAT 99
[2018-04-18 20:35] VITALS: O2SAT 94
[2018-04-18] MEDS ORDERED: methylPREDNISolone SOD SUCC 125 MG/2 ML VIAL IV PUSH ONE (23:00)
[2018-04-18] MEDS ORDERED: RESP: ALBUTEROL 2.5 MG/IPRATROPIUM 0.5 MG NEB (PRN) NEB (23:00)
--- NOTE | 2018-04-18 23:21 | HHI.HP ---
[facility] Admission Diagnosis exac copd, chf Diagnoses: Travel History International Travel<30 Days: No Contact w/Intl Traveler <30 Da: No Traveled to Known Affected Are: No History of Present Illness 62-year-old male with a past medical history significant for COPD, hypertension , CHF (EF of 55-60% on 05/03/17) and hyperlipidemia presented to the emergency department for evaluation of respiratory distress. Per the patient, over the last 24 hours he became increasingly short of breath. [facility] however he was so short of breath he could not wait for them to arrive. The patient reports that he called his son who arrived to his father's home and found him in severe respiratory distress, diaphoretic and confused from baseline. On arrival to the emergency department the patient had an oxygen saturation in the 80s and was tachypneic and tachycardic. He denies any chest pain or pressure. No abdominal pain. No nausea/vomiting/diarrhea. No fever/chills. No lateralizing signs/symptoms. Review of Systems Except as stated in HPI: all other systems reviewed are Neg Past Family Social History Past Medical History COPD, hypertension, CHF (EF of 55-60% on 05/03/17) and hyperlipidemia Past Surgical History AAA repair Reported Medications Reported Meds & Active Scripts Active Furosemide 40 Mg Tab 40 Mg PO DAILY take as prescribed Aspirin Low Strength (Aspirin) 81 Mg Chew 81 Mg CHEW DAILY take as prescribed Reported Vitamin D3 (Cholecalciferol) 1,000 Unit Tab 2,000 Units PO DAILY Pravastatin 40 Mg Tab 40 Mg PO DAILY Metoprolol Tartrate 100 Mg Tab 50 Mg PO BID Symbicort Inh (Budesonide/Formoterol Fumarate) 160-4.5 Mcg/Act Aero 2 Puff INH Q12HR Rinse mouth after each use Combivent Respimat Inh (Ipratropium-Albuterol Inh) 20-100 Group Home/Act Aero 1 Puff INH Q4HR Do not exceed 6 puffs/24hrs Duoneb (Ipratropium-Albuterol Neb) 0.5-2.5 Mg/3 Ml Neb 1 Vial NEB BID PRN Allergies: Coded Allergies: No Known Allergies (Unverified , 05/03/17) Family History Positive for DM/CAD Social History Quit tobacco 1 year ago. Occasional alcohol. Denies illicit drugs. Physical Exam Vital Signs Vital Signs Date Time Temp Pulse Resp B/P (MAP) Pulse Ox O2 Delivery O2 Flow Rate FiO2 04/18/18 20:31 99 14 175/87 (116) 99 BiPAP 04/18/18 18:32 122 28 182/83 (116) 98 BiPAP 100 04/18/18 18:30 98 100 04/18/18 18:14 36 97 Nasal Cannula 12.00 100 04/18/18 18:14 96 Non-Rebreather 12.00 100 04/18/18 18:13 98.4 127 34 132/91 (105) 72 04/18/18 18:13 118 36 95 Non-Rebreather 12.00 100 Physical Exam GENERAL: male sitting up in bed SKIN: No rashes, ecchymoses or lesions. Cool and dry. HEAD: Atraumatic. Normocephalic. No temporal or scalp tenderness. EYES: Pupils equal round and reactive. Extraocular motions intact. No scleral icterus. No injection or drainage. ENT: Nose without bleeding, purulent drainage or septal hematoma. Throat without erythema, tonsillar hypertrophy or exudate. Uvula midline. Airway patent. NECK: Trachea midline. No JVD or lymphadenopathy. Supple, nontender, no meningeal signs. CARDIOVASCULAR: Regular rate and rhythm without murmurs, gallops, or rubs. RESPIRATORY: Bilateral wheezes. Poor air movement. GASTROINTESTINAL: Abdomen soft, non-tender, nondistended. No hepato-splenomegaly , or palpable masses. No guarding. MUSCULOSKELETAL: Extremities without clubbing, cyanosis, or edema. No joint tenderness, effusion, or edema noted. No calf tenderness. NEUROLOGICAL: Awake and alert. Cranial nerves II through XII intact. Motor and sensory grossly within normal limits. Normal speech. Unable to tell me the day of the week but otherwise oriented to person place and year. Laboratory Laboratory Tests Test 04/18/18 18:25 04/18/18 20:30 04/18/18 22:48 White Blood Count 10.4 Red Blood Count 5.42 Hemoglobin 16.1 Hematocrit 48.8 Mean Corpuscular Volume 90.1 Mean Corpuscular Hemoglobin 29.7 Mean Corpuscular Hemoglobin Concent 33.0 Red Cell Distribution Width 14.1 Platelet Count 351 Mean Platelet Volume 8.0 Neutrophils (%) (Auto) 74.0 Lymphocytes (%) (Auto) 11.5 Monocytes (%) (Auto) 13.2 Eosinophils (%) (Auto) 1.0 Basophils (%) (Auto) 0.3 Neutrophils # (Auto) 7.7 Lymphocytes # (Auto) 1.2 Monocytes # (Auto) 1.4 Eosinophils # (Auto) 0.1 Basophils # (Auto) 0.0 CBC Comment DIFF FINAL Differential Comment Blood Urea Nitrogen 23 Creatinine 1.03 Random Glucose 114 Total Protein 9.1 Albumin 3.2 Calcium Level 10.1 Magnesium Level 2.3 Alkaline Phosphatase 70 Aspartate Amino Transf (AST/SGOT) 31 Alanine Aminotransferase (ALT/SGPT) 19 Total Bilirubin 0.6 Sodium Level 136 Potassium Level 4.9 Chloride Level 91 Carbon Dioxide Level 34.1 Anion Gap 11 Estimat Glomerular Filtration Rate 73 Total Creatine Kinase 156 Creatine Kinase MB 6.6 Troponin I LESS THAN 0.02 B-Type Natriuretic Peptide 64 Blood Gas Puncture Site LT RADIAL RT RADIAL Blood Gas Patient Temperature 98.6 98.6 Blood Gas HCO3 42 43 Blood Gas Base Excess 15.3 17.1 Blood Gas Oxygen Saturation 98 91 Arterial Blood pH 7.31 7.38 Arterial Blood Partial Pressure CO2 87 75 Arterial Blood Partial Pressure O2 169 62 Arterial Blood Oxygen Content 20.3 19.8 Arterial Blood Carboxyhemoglobin 1.2 1.3 Arterial Blood Methemoglobin 0.6 0.6 Blood Gas Hemoglobin 14.6 15.5 Oxygen Delivery Device BiPAP BiPAP Blood Gas Ventilator Setting 12IPAP/5EPAP 12IPAP/5EPAP Blood Gas Inspired Oxygen 100 60 Date/Time Source Procedure Growth Status 04/18/18 18:30 Blood Peripheral Aerobic Blood Culture Pending Received 04/18/18 18:30 Blood Peripheral Anaerobic Blood Culture Pending Received Result Diagram: 04/18/18182404/18/181824 Caprini VTE Risk Assessment Caprini VTE Risk Assessment: Mod/High Risk (score >= 2) Caprini Risk Assessment Model Point Value = 1 Point Value = 2 Point Value = 3 Point Value = 5 Age 41-60 Minor surgery BMI > 25 kg/m2 Swollen legs Varicose veins or History of unexplained or recurrent spontaneous Oral contraceptives or hormone replacement Sepsis (< 1 month) Serious lung disease, including pneumonia (< 1 month) Abnormal pulmonary function Acute myocardial infarction Congestive heart failure (< 1 month) History of inflammatory bowel disease Medical patient at bed rest Age 61-74 Arthroscopic surgery Major open surgery (> 45 min) Laparoscopic surgery (> 45 min) Malignancy Confined to bed (> 72 hours) Immobilizing plaster cast Central venous access Age >= 75 History of VTE Family history of VTE Factor V Leiden Prothrombin [id number] Lupus anticoagulant Anticardiolipin antibodies Elevated serum homocysteine Heparin-induced thrombocytopenia Other congenital or acquired thrombophilia Stroke (< 1 month) Elective arthroplasty Hip, pelvis, or leg fracture Acute spinal cord injury (< 1 month) Prophylaxis Regimen Total Risk Factor Score Risk Level Prophylaxis Regimen 0-1 Low Early ambulation 2 Moderate Order ONE of the following: *Sequential Compression Device (SCD) *Heparin 5000 units SQ BID 3-4 Higher Order ONE of the following medications: *Heparin 5000 units SQ TID *Enoxaparin/Lovenox 40 mg SQ daily (WT < 150 kg, CrCl > 30 mL/min) *Enoxaparin/Lovenox 30 mg SQ daily (WT < 150 kg, CrCl > 10-29 mL/min) *Enoxaparin/Lovenox 30 mg SQ BID (WT < 150 kg, CrCl > 30 mL/min) AND/OR *Sequential Compression Device (SCD) 5 or more Highest Order ONE of the following medications: *Heparin 5000 units SQ TID (Preferred with Epidurals) *Enoxaparin/Lovenox 40 mg SQ daily (WT < 150 kg, CrCl > 30 mL/min) *Enoxaparin/Lovenox 30 mg SQ daily (WT < 150 kg, CrCl > 10-29 mL/min) *Enoxaparin/Lovenox 30 mg SQ BID (WT < 150 kg, CrCl > 30 mL/min) AND *Sequential Compression Device (SCD) Assessment and Plan Assessment and Plan Assessment/plan: 1. COPD exacerbation Chest x-ray negative for acute process, personally reviewed ABG done on BiPAP 7.35/75/62/43 Improving on BiPAP Continue BiPAP with repeat ABG IV steroids Duo nebs 2. Hypertension/hyperlipidemia/CHF Continue home medications FEN Heart healthy diet Electrolytes: Monitor and replete as needed Heparin Physician Certification 2 Midnight Certification Type: Admission for Inpatient Services Order for Inpatient Services The services are ordered in accordance with Medicare regulations or non- Medicare payer requirements, as applicable. In the case of services not specified as inpatient-only, they are appropriately provided as inpatient services in accordance with the 2-midnight benchmark. Estimated LOS (days): 2 2 days is the estimated time the patient will need to remain in the hospital, assuming treatment plan goals are met and no additional complications. Post-Hospital Plan: Not yet determined Majo Simon MD April 18, 2018 23:21
[2018-04-18] MEDS ORDERED: SODIUM CHLORIDE FLUSH PRN IV FLUSH (23:30)
[2018-04-19] VITALS (32 sets, daily range): BP systolic 145–172; BP diastolic 75–93; PULSE 59–104; RESP 14–24; TEMP 97.9–98.7; O2SAT 90–100
[2018-04-19] MEDS: RESP: ALBUTEROL 2.5 MG/IPRATROPIUM 0.5 MG NEB (SCH) NEB ×4 (02:26→20:53)
[2018-04-19] MEDS ORDERED: cloNIDine HCL 0.1 MG TAB PO PRN ×2 (06:00→12:15)
[2018-04-19] MEDS: methylPREDNISolone SOD SUCC 40 MG/1 ML VIAL IV PUSH SCH ×3 (06:16→17:02)
[2018-04-19] MEDS: HEPARIN SODIUM - SQ 10,000 UNITS/ML VIAL SQ SCH ×3 (06:17→21:15)
[2018-04-19] MEDS: ASPIRIN 81 MG CHEW TAB CHEW SCH (08:22)
[2018-04-19] MEDS: METOPROLOL TARTRATE 50 MG TAB PO SCH ×2 (08:22→20:08)
[2018-04-19] MEDS: PRAVASTATIN SOD 40 MG TAB PO SCH (08:22)
[2018-04-19] MEDS: FUROSEMIDE 40 MG TAB PO SCH (08:22)
[2018-04-19] MEDS: SODIUM CHLORIDE FLUSH BID IV FLUSH SCH ×2 (08:23→20:09)
--- NOTE | 2018-04-19 11:52 | HHI.PR ---
Subjective Remarks 62-year-old male with a past medical history significant for COPD, hypertension , CHF (EF of 55-60% on 05/03/17) and hyperlipidemia presented to the emergency department for evaluation of respiratory distress. Per the patient, over the last 24 hours he became increasingly short of breath. [facility] however he was so short of breath he could not wait for them to arrive. The patient reports that he called his son who arrived to his father's home and found him in severe respiratory distress, diaphoretic and confused from baseline. On arrival to the emergency department the patient had an oxygen saturation in the 80s and was tachypneic and tachycardic. He denies any chest pain or pressure. No abdominal pain. No nausea/vomiting/diarrhea. No fever/chills. No lateralizing signs/symptoms. 6-1 Mucinex p.o. twice daily as well as incentive spirometry Continue steroids and nebulized treatments Continue incentive spirometry Continue on Symbicort A.m. labs Catapres as needed for elevated blood pressure Physical therapy and occupational therapy to eval and treat Consult pulmonary medicine Consult case management Suspect patient will be here over the weekend Objective Vitals Vital Signs Date Time Temp Pulse Resp B/P (MAP) Pulse Ox O2 Delivery O2 Flow Rate FiO2 04/19/18 09:01 82 04/19/18 08:14 90 Venturi Mask 100 04/19/18 08:14 97.9 94 20 162/92 (115) 90 04/19/18 08:00 90 04/19/18 07:58 93 Nasal Cannula 6.00 50 04/19/18 07:45 93 35 04/19/18 07:00 89 04/19/18 05:46 92 04/19/18 04:00 95 04/19/18 03:39 100 Bi-Pap 04/19/18 03:39 98.2 97 24 171/93 (119) 100 04/19/18 03:39 97 04/19/18 03:38 96 60 04/19/18 03:30 04/19/18 03:20 92 50 04/19/18 02:26 92 60 04/19/18 01:45 92 Venturi Mask 7.00 50 04/19/18 01:00 100 14 172/82 (112) 94 BiPAP 5/31/18 20:35 94 60 04/18/18 20:31 99 14 175/87 (116) 99 BiPAP 04/18/18 18:32 122 28 182/83 (116) 98 BiPAP 100 04/18/18 18:30 98 100 04/18/18 18:14 36 97 Nasal Cannula 12.00 100 04/18/18 18:14 96 Non-Rebreather 12.00 100 04/18/18 18:13 98.4 127 34 132/91 (105) 72 04/18/18 18:13 118 36 95 Non-Rebreather 12.00 100 Result Diagram: 04/18/18 1825 04/18/18 1825 Other Results Laboratory Tests Test 04/18/18 18:25 04/18/18 20:30 04/18/18 22:48 04/19/18 03:00 White Blood Count 10.4 TH/MM3 Red Blood Count 5.42 MIL/MM3 Hemoglobin 16.1 GM/DL Hematocrit 48.8 % Mean Corpuscular Volume 90.1 FL Mean Corpuscular Hemoglobin 29.7 PG Mean Corpuscular Hemoglobin Concent 33.0 % Red Cell Distribution Width 14.1 % Platelet Count 351 TH/MM3 Mean Platelet Volume 8.0 FL Neutrophils (%) (Auto) 74.0 % Lymphocytes (%) (Auto) 11.5 % Monocytes (%) (Auto) 13.2 % Eosinophils (%) (Auto) 1.0 % Basophils (%) (Auto) 0.3 % Neutrophils # (Auto) 7.7 TH/MM3 Lymphocytes # (Auto) 1.2 TH/MM3 Monocytes # (Auto) 1.4 TH/MM3 Eosinophils # (Auto) 0.1 TH/MM3 Basophils # (Auto) 0.0 TH/MM3 CBC Comment DIFF FINAL Differential Comment Blood Urea Nitrogen 23 MG/DL Creatinine 1.03 MG/DL Random Glucose 114 MG/DL Total Protein 9.1 GM/DL Albumin 3.2 GM/DL Calcium Level 10.1 MG/DL Magnesium Level 2.3 MG/DL Alkaline Phosphatase 70 U/L Aspartate Amino Transf (AST/SGOT) 31 U/L Alanine Aminotransferase (ALT/SGPT) 19 U/L Total Bilirubin 0.6 MG/DL Sodium Level 136 MEQ/L Potassium Level 4.9 MEQ/L Chloride Level 91 MEQ/L Carbon Dioxide Level 34.1 MEQ/L Anion Gap 11 MEQ/L Estimat Glomerular Filtration Rate 73 ML/MIN Total Creatine Kinase 156 U/L Creatine Kinase MB 6.6 NG/ML Troponin I LESS THAN 0.02 NG/ML B-Type Natriuretic Peptide 64 PG/ML Blood Gas Puncture Site LT RADIAL RT RADIAL LT BRACHIAL Blood Gas Patient Temperature 98.6 98.6 98.6 Blood Gas HCO3 42 mmol/L 43 mmol/L 43 mmol/L Blood Gas Base Excess 15.3 mmol/L 17.1 mmol/L 17.2 mmol/L Blood Gas Oxygen Saturation 98 % 91 % 91 % Arterial Blood pH 7.31 7.38 7.40 Arterial Blood Partial Pressure CO2 87 mmHg 75 mmHg 70 mmHg Arterial Blood Partial Pressure O2 169 mmHG 62 mmHG 60 mmHG Arterial Blood Oxygen Content 20.3 Vol % 19.8 Vol % 19.8 Vol % Arterial Blood Carboxyhemoglobin 1.2 % 1.3 % 1.2 % Arterial Blood Methemoglobin 0.6 % 0.6 % 0.5 % Blood Gas Hemoglobin 14.6 G/DL 15.5 G/DL 15.5 G/DL Oxygen Delivery Device BiPAP BiPAP BiPAP Blood Gas Ventilator Setting 12IPAP/5EPAP 12IPAP/5EPAP 12IPAP/5EPAP Blood Gas Inspired Oxygen 100 % 60 % 60 % Imaging Last Impressions Chest X-Ray 04/18/18 1816 Signed Impressions: CONCLUSION: No acute pulmonary abnormality is identified. Chronic lung findings indicate ob structive airways disease/emphysema with possible interstitial lung disease. Objective Remarks GENERAL: Awake alert and oriented 3 talkative and cooperative appears to be in some distress still-- becomes very short of breath off oxygen SKIN: Warm and dry. HEAD: Atraumatic. Normocephalic. EYES: Pupils equal and round. No scleral icterus. No injection or drainage. ENT: No nasal bleeding or discharge. Mucous membranes pink and moist. NECK: Trachea midline. No JVD. CARDIOVASCULAR: Regular rate and rhythm. S1-S2 no S3 or S4 RESPIRATORY: No accessory muscle use Breath sounds equal bilaterally. Coarse breath sounds and rhonchi and wheezes bilaterally GASTROINTESTINAL: Abdomen soft, non-tender, nondistended. Hepatic and splenic margins not palpable. MUSCULOSKELETAL: Extremities without clubbing, cyanosis, or edema. No obvious deformities. NEUROLOGICAL: Awake and alert. No obvious cranial nerve deficits. Motor grossly within normal limits. Five out of 5 muscle strength in the arms and legs. Normal speech. PSYCHIATRIC: Appropriate mood and affect; insight and judgment normal. Medications and IVs Current Medications Sodium Chloride (NS Flush) 2 ml UNSCH PRN IVF FLUSH AFTER USING IV ACCESS Last administered on 04/18/18at 21:03; Start 04/18/18 at 18:30; Stop 04/18/18 at 23:26 ; Status DC Albuterol/ Ipratropium (Duoneb Neb) 1 ampule ONCE ONCE INH Last administered on 04/18/18at 18:30; Start 04/18/18 at 18:30; Stop 04/18/18 at 18:48; Status DC Albuterol Sulfate (Albuterol Neb) 2.5 mg Q15M INH Last administered on at 18:32; Start 04/18/18 at 18:30; Stop 04/18/18 at 18:48; Status DC Furosemide (Lasix Inj) 40 mg ONCE ONCE IV PUSH Last administered on 04/18/18at 20:28; Start 04/18/18 at 19:30; Stop 04/18/18 at 19:31; Status DC Methylprednisolone Sodium Succinate (SoluMEDROL INJ) 125 mg ONCE ONCE IV PUSH Last administered on 04/18/18at 23:57; Start 04/18/18 at 23:00; Stop 04/18/18 at 23:01; Status DC Methylprednisolone Sodium Succinate (SoluMEDROL INJ) 40 mg Q6HR IV PUSH Last administered on 04/19/18at 12:06; Start 04/19/18 at 06:00 Albuterol/ Ipratropium (Duoneb Neb) 1 ampule Q6HR NEB NEB Last administered on 04/19/18at 07:45; Start 04/19/18 at 04:00 Albuterol/ Ipratropium (Duoneb Neb) 1 ampule Q2HR NEB PRN NEB sob, wheeze Last administered on 04/19/18at 11:04; Start 04/18/18 at 23:00 Aspirin (Aspirin Chew) 81 mg DAILY CHEW Last administered on 04/19/18at 08:22; Start 04/19/18 at 09:00 Budesonide/ Formoterol Fumarate (Symbicort 160-4.5 Mcg Inh) 2 puff Q12HR INH ; Start 04/19/18 at 09:00 Furosemide (Lasix) 40 mg DAILY PO Last administered on 04/19/18 08:22; Start at 09:00 Metoprolol Tartrate (Lopressor) 50 mg BID PO Last administered on 04/19/18at 08: 22; Start 04/19/18 at 09:00 Pravastatin Sodium (Pravachol) 40 mg DAILY PO Last administered on 04/19/18at 08: 22; Start 04/19/18 at 09:00 Heparin Sodium (Porcine) (Heparin Inj) 5,000 units Q8HR SQ Last administered on 04/19/18at 06:17; Start 04/19/18 at 06:00 Sodium Chloride (NS Flush) 2 ml BID IV FLUSH Last administered on 04/19/18at 08: 23; Start 04/19/18 at 09:00 Sodium Chloride (NS Flush) 2 ml UNSCH PRN IV FLUSH FLUSH AFTER USING IV ACCESS ; Start 04/18/18 at 23:30 Clonidine (Catapres) 0.1 mg Q6H PRN PO SBP>160, DBP>90 Last administered on 04/19at 08:23; Start 04/19/18 at 06:00 Cholecalciferol (Vitamin D3) 2,000 units DAILY PO ; Start 04/19/18 at 12:15; Status UNV A/P Assessment and Plan 1. COPD exacerbation Chest x-ray negative for acute process, personally reviewed ABG done on BiPAP 7.35/75/62/43 Improving on BiPAP Continue BiPAP with repeat ABG IV steroids Duo nebs Continue on Mucinex p.o. twice daily Incentive spirometry Symbicort Consult pulmonary medicine 2. Hypertension/hyperlipidemia/CHF Continue home medications Resume all home medications Physical therapy and occupational therapy to eval and treat a.m. labs A.m. labs FEN Heart healthy diet Electrolytes: Monitor and replete as needed Heparin Discharge Planning Pending pulmonary improvement Diaz Tomlinson DO Apr 19, 2018 11:52
[2018-04-19] MEDS: BUDESONIDE-FORMOTEROL 160/4.5 MCG INHALER INH SCH ×2 (13:29→20:08)
[2018-04-19] MEDS: CHOLECALCIFEROL (VIT D3) 1000 UNIT TAB PO SCH (13:30)
[2018-04-19] MEDS: guaiFENesin E.R. 600 MG TAB PO SCH ×2 (13:30→20:09)
--- NOTE | 2018-04-19 15:14 | EKG ---
Date Performed: 04/18/2018 Time Performed: 18:13:54 PTAGE: 62 years EKG: SINUS TACHYCARDIA WITH FREQUENT VENTRICULAR PREMATURE COMPLEXES WITH OCCASIONAL SUPRAVENTRI CULAR PREMATURE COMPLEXES MARKED LEFT AXIS DEVIATION ST DEVIATION AND MODERATE T-WAVE ABNORMALITY, CO NSIDER ANTERIOR ISCHEMIA ABNORMAL ECG Compared to PREVIOUS TRACING , sinus rate has increased. PVCs are new. PREVIOUS TRACIN05/04/2017 0 3.42.22 DOCTOR: Kasi Goldman Interpretating Date/Time 04/19/2018 15:12:25
[2018-04-19] MEDS: AZITHROMYCIN 250 MG TAB PO SCH (20:08)
--- NOTE | 2018-04-19 20:26 | MB ---
cc: Mane Adan MD, Arjun D MD DATE: 04/19/2018 REQUESTING PHYSICIAN: Dr. Adams Tomlinson REASON FOR CONSULTATION: COPD exacerbation. HISTORY OF PRESENT ILLNESS: Mr. Stephenson is a pleasant 62-year-old white male with severe COPD. He is oxygen dependent. He was recently taking steroids. The patient has been having worsening of shortness of breath for about a week or so. He was complaining of tightness. He has mild wheezing. He has a small amount of sputum production, did not have fever or chills. No night sweats. He has oxygen concentrator as well as waiting for portable oxygen at home. The patient came to the hospital. He was hypoxic. He had a blood gas done and it shows his pH was 7.31, pCO2 of 87, pO2 of 169. He was put on 100% BiPAP. After using BiPAP, his CO2 improved, pH is 7.40, pCO2 of 70, pO2 of 60, currently he is on OxyMask. His CBC showed WBC count of 10.4, hemoglobin 16.1, hematocrit 48.8, MCV 90, platelet count 351. Sodium 136, potassium 4.9, chloride 91, CO2 of 34, BUN 23, creatinine 1.03. Troponin less than 0.02. BNP 1124. IMAGING STUDIES Chest x-ray shows chronic lung findings, possible interstitial disease. PAST MEDICAL HISTORY: Significant for history of COPD, congestive heart failure, pulmonary hypertension, AAA repair. CURRENT MEDICATIONS: 1. Mucinex 600 mg twice a day. 2. Clonidine p.r.n. 3. Symbicort 160/4.5 two puffs twice a day. 4. Lasix 40 mg a day. 5. Metoprolol 50 mg twice a day. 6. Pravastatin 40 mg a day, 7. Solu-Medrol 40 mg q. 6 hours. 8. Heparin 5000 q. 12 hours. 9. Albuterol Atrovent nebulizer treatment. ALLERGIES: NO KNOWN DRUG ALLERGIES. SOCIAL HISTORY: He is . He has a long history of smoking since age 14, 1 pack a day, and continues to smoke. He drinks 3 beers at nighttime. No drug abuse. He worked as a traffic controller in the service. He is disabled. He worked for [employer]. FAMILY HISTORY: He is . He has 2 children. REVIEW OF SYSTEMS: He walks only short distance. No headache or dizziness. No malignancy. No DVT or pulmonary embolism. PHYSICAL EXAMINATION: GENERAL: Elderly male in mild to moderate shortness of breath. VITAL SIGNS: Blood pressure 150/82, heart rate 102, respirations 18, temperature 98.3. HEENT: Pupils are equal and reactive to light. Oral mucosa and nasal mucosa are normal. NECK: Supple. JVP not raised. CHEST: End expiratory rhonchi. CARDIOVASCULAR: S1, S2 normal. ABDOMEN: Soft, nondistended. Bowel sounds are present. EXTREMITIES: Trace pedal edema. IMPRESSION: 1. Hypercapnic respiratory failure. He Improved with BiPAP therapy. 2. Chronic obstructive pulmonary disease exacerbation with bronchitis. 3. Hypertension. 4. Pulmonary hypertension. 5. Diastolic congestive heart failure. PLAN: I discussed with the patient. He will use CPAP at nighttime and daytime as needed. Titrate oxygen to keep saturation between 88% and 92%. Continue aerosol treatment, IV Solu-Medrol, 500 mg a day. Once he gets better, we will check his pulmonary function study. Further treatment will depend on the course in the hospital. Thank you, Dr. Tomlinson, for this consult. MD TAYLER [email or web address] , 06:46 PM , 07:26 PM
[2018-04-19] MEDS ORDERED: TEMAZEPAM 7.5 MG CAP PO ONE (20:45)
[2018-04-20] VITALS (29 sets, daily range): BP systolic 136–149; BP diastolic 72–88; PULSE 81–102; RESP 18–24; TEMP 97.6–99; O2SAT 91–95
[2018-04-20] MEDS: methylPREDNISolone SOD SUCC 40 MG/1 ML VIAL IV PUSH SCH ×5 (00:13→23:40)
[2018-04-20] MEDS: RESP: ALBUTEROL 2.5 MG/IPRATROPIUM 0.5 MG NEB (SCH) NEB ×4 (03:00→21:11)
[2018-04-20] MEDS: HEPARIN SODIUM - SQ 10,000 UNITS/ML VIAL SQ SCH ×3 (05:37→20:37)
[2018-04-20 05:42] LABS: AUTOMATED NEUTROPHIL # 9.5 TH/MM3 (1.8-7.7); BASOPHIL % 0.2 % (0.0-2.0); HEMATOCRIT 45.2 % (39.0-51.0); HEMOGLOBIN 14.7 GM/DL (13.0-17.0); LYMPH % 5.6 % (9.0-44.0); LYMPHOCYTE # 0.6 TH/MM3 (1.0-4.8); MEAN CELL VOLUME 89.7 FL (80.0-100.0); MEAN CORPUSCULAR HEMOGLOBIN 29.1 PG (27.0-34.0); MEAN CORPUSCULAR HGB CONC 32.4 % (32.0-36.0); MEAN PLATELET VOLUME 7.6 FL (7.0-11.0); MONO % 6.3 % (0.0-8.0); MONOCYTE # 0.7 TH/MM3 (0-0.9); NEUT % 87.9 % (16.0-70.0); PLATELET COUNT 344 TH/MM3 (150-450); RED BLOOD COUNT 5.04 MIL/MM3 (4.50-5.90); RED CELL DISTRIBUTION WIDTH 13.5 % (11.6-17.2); WHITE BLOOD COUNT 10.9 TH/MM3 (4.0-11.0)
[2018-04-20 05:58] LABS: ALBUMIN 2.9 GM/DL (3.4-5.0); ALT (GPT) 13 U/L (12-78); AST (GOT) 9 U/L (15-37); BICARBONATE 44.1 MEQ/L (21.0-32.0); BLOOD UREA NITROGEN 38 MG/DL (7-18); CALCIUM 9.5 MG/DL (8.5-10.1); CHLORIDE 90 MEQ/L (98-107); CREATININE 1.37 MG/DL (0.60-1.30); GLOMERULAR FILTRATION RATE 53 ML/MIN (>89); GLUCOSE,RANDOM 209 MG/DL (74-106); MAGNESIUM 2.3 MG/DL (1.5-2.5); PHOSPHORUS 2.2 MG/DL (2.5-4.9); SODIUM (NA) 141 MEQ/L (136-145)
[2018-04-20 06:06] LABS: ALKALINE PHOSPHATASE 56 U/L (45-117); FREE T4 1.64 NG/DL (0.76-1.46); TOTAL BILIRUBIN ADULT 0.3 MG/DL (0.2-1.0); TOTAL PROTEIN 7.6 GM/DL (6.4-8.2)
[2018-04-20] MEDS: FUROSEMIDE 40 MG TAB PO SCH (08:42)
[2018-04-20] MEDS: CHOLECALCIFEROL (VIT D3) 1000 UNIT TAB PO SCH (08:42)
[2018-04-20] MEDS: ASPIRIN 81 MG CHEW TAB CHEW SCH (08:42)
[2018-04-20] MEDS: METOPROLOL TARTRATE 50 MG TAB PO SCH ×2 (08:42→20:37)
[2018-04-20] MEDS: guaiFENesin E.R. 600 MG TAB PO SCH ×2 (08:42→20:37)
[2018-04-20] MEDS: PRAVASTATIN SOD 40 MG TAB PO SCH (08:42)
[2018-04-20] MEDS: BUDESONIDE-FORMOTEROL 160/4.5 MCG INHALER INH SCH ×2 (08:43→20:37)
[2018-04-20] MEDS: SODIUM CHLORIDE FLUSH BID IV FLUSH SCH ×2 (08:43→20:37)
--- NOTE | 2018-04-20 14:39 | HHI.PR ---
Subjective Remarks Pt seen and examined. AFVSS. Objective Vital Signs Date Time Temp Pulse Resp B/P (MAP) Pulse Ox O2 Delivery O2 Flow Rate FiO2 04/20/18 13:00 89 04/20/18 12:00 84 04/20/18 11:55 98.1 84 20 136/72 (93) 93 04/20/18 11:55 93 Venturi Mask 6.00 04/20/18 11:00 84 04/20/18 10:00 84 04/20/18 09:42 93 Venturi Mask 6.00 50 04/20/18 09:07 93 Venturi Mask 6.00 04/20/18 09:07 98.2 87 18 149/82 (104) 93 04/20/18 09:00 95 04/20/18 08:00 86 04/20/18 07:00 87 04/20/18 06:19 81 04/20/18 05:43 82 04/20/18 04:01 91 04/20/18 03:18 Venturi Mask 6.00 40 04/20/18 03:14 98.5 82 23 146/88 (107) 95 04/20/18 03:01 81 04/20/18 02:22 91 Venturi Mask 6.00 04/20/18 02:00 82 04/20/18 01:02 92 40 04/20/18 01:00 88 04/20/18 00:28 Bi-Pap 04/20/18 00:16 99.0 92 20 149/87 (107) 95 04/20/18 00:00 90 04/19/18 23:10 89 04/19/18 22:00 98 04/19/18 21:13 93 35 04/19/18 20:54 92 Venturi Mask 6.00 50 04/19/18 20:14 Venturi Mask 6.00 100 04/19/18 20:14 98.7 96 20 145/77 (99) 97 04/19/18 20:00 100 04/19/18 19:00 101 04/19/18 18:03 150/83 (105) 04/19/18 18:01 102 04/19/18 17:34 Venturi Mask 100 04/19/18 17:00 104 04/19/18 16:27 92 Venturi Mask 6.00 50 04/19/18 15:13 98.3 95 19 164/75 (104) 94 04/19/18 15:01 96 I/O 04/19/18 04/19/18 04/19/18 04/20/18 04/20/18 04/20/18 07:00 15:00 23:00 07:00 15:00 23:00 Intake Total 320 ml 900 ml Output Total 875 ml 400 ml Balance -555 ml 500 ml Intake Oral 320 ml 900 ml Output Urine Total 875 ml 400 ml Result Diagram: 04/20/1842004/20/18420 Objective Remarks GENERAL: WN, WD male sitting up in chair in NAD. SKIN: Warm and dry. HEENT: AT/NC. Pupils equal and round. MMM. Venturi mask in place. HEART: RRR no m/r/g. LUNGS: Diminished breath sounds with diffuse expiratory wheezing. No crackles. Speaking in complete sentences. ABDOMEN: +BS, soft, NT, ND. EXTREMITIES: No LE edema. No calf tenderness. NEURO: Awake and alert. PSYCH: Appropriate mood and affect. A/P Assessment and Plan 62 YOWM with O2-dependent COPD admitted on 1. COPD exacerbation - CXR with chronic lung findings c/w COPD/emphysema with possible interstitial lung disease - Pulmonology following, appreciate reccs - Supplemental O2 to maintain sats 88-92% - IV Solumedrol 40 mg Q6H - DuoNebs - Azithromycin x 5 days - Mucinex - Continue home Symbicort - BiPAP at night - PFTs once better 2. Hypercapnic respiratory failure - CO2 44.1 on BMP - Continue to follow - BiPAP at night 3. Diastolic CHF - Euvolemic on exam - Continue home ASA, metoprolol, Lasix 4. HTN - Continue home metoprolol 5. HLD - Continue home statin 6. Low TSH - Free T4 mildly elevated - May be unreliable in setting of acute illness - Recommend following as OP DVT prophylaxis: Heparin Lucretia Tejada MD Apr 20, 2018 14:39
--- NOTE | 2018-04-20 18:01 | HHI.PR ---
Subjective Remarks 62 YOWM with COPD exac, hypercapnoic RF Used CPAP last night now on oxymask Feels better Anxious to go home. Objective Vital Signs Vital Signs Date Time Temp Pulse Resp B/P (MAP) Pulse Ox O2 Delivery O2 Flow Rate FiO2 04/20/18 17:00 90 04/20/18 16:00 90 04/20/18 15:15 92 Venturi Mask 6.00 04/20/18 15:15 97.6 89 18 142/76 (98) 92 04/20/18 15:00 90 04/20/18 14:00 90 04/20/18 13:00 89 04/20/18 12:00 84 04/20/18 11:55 98.1 84 20 136/72 (93) 93 04/20/18 11:55 93 Venturi Mask 6.00 04/20/18 11:00 84 04/20/18 10:00 84 04/20/18 09:42 93 Venturi Mask 6.00 50 04/20/18 09:07 93 Venturi Mask 6.00 04/20/18 09:07 98.2 87 18 149/82 (104) 93 04/20/18 09:00 95 04/20/18 08:00 86 04/20/18 07:00 87 04/20/18 06:19 81 04/20/18 05:43 82 04/20/18 04:01 91 04/20/18 03:18 Venturi Mask 6.00 40 04/20/18 03:14 98.5 82 23 146/88 (107) 95 04/20/18 03:01 81 04/20/18 02:22 91 Venturi Mask 6.00 04/20/18 02:00 82 04/20/18 01:02 92 40 04/20/18 01:00 88 04/20/18 00:28 Bi-Pap 04/20/18 00:16 99.0 92 20 149/87 (107) 95 04/20/18 00:00 90 04/19/18 23:10 89 04/19/18 22:00 98 04/19/18 21:13 93 35 04/19/18 20:54 92 Venturi Mask 6.00 50 04/19/18 20:14 Venturi Mask 6.00 100 04/19/18 20:14 98.7 96 20 145/77 (99) 97 04/19/18 20:00 100 04/19/18 19:00 101 04/19/18 18:03 150/83 (105) 04/19/18 18:01 102 I/O 04/19/18 04/19/18 04/19/18 04/20/18 04/20/18 04/20/18 07:00 15:00 23:00 07:00 15:00 23:00 Intake Total 320 ml 900 ml 720 ml Output Total 875 ml 400 ml 601 ml Balance -555 ml 500 ml 119 ml Intake Oral 320 ml 900 ml 720 ml Output Urine Total 875 ml 400 ml 600 ml Stool Total 1 ml Result Diagram: 04/20/18 04204/20/18 042 Objective Remarks GENERAL: WBWN WM, mild sob SKIN: Warm and dry. HEAD: Normocephalic. EYES: No scleral icterus. No injection or drainage. NECK: Supple, trachea midline. No JVD or lymphadenopathy. CARDIOVASCULAR: Regular rate and rhythm without murmurs, gallops, or rubs. RESPIRATORY: Breath sounds equal bilaterally. No accessory muscle use. Exp rhonchi. GASTROINTESTINAL: Abdomen soft, non-tender, nondistended. MUSCULOSKELETAL: No cyanosis, or edema. BACK: Nontender without obvious deformity. No CVA tenderness. A/P Assessment and Plan IMPRESSION: 1. Hypercapnic respiratory failure. He Improved with BiPAP therapy. 2. Chronic obstructive pulmonary disease exacerbation with bronchitis. 3. Hypertension. 4. Pulmonary hypertension. 5. Diastolic congestive heart failure. PLAN: IV Solumedrol Aerosol nebs Symbicort 2 puffs bid Cont Abx Supplement 02 CPAP at night and prn SQ Heparin. Mane Adan MD Apr 20, 2018 18:01
[2018-04-20] MEDS: AZITHROMYCIN 250 MG TAB PO SCH (20:36)
[2018-04-20] MEDS: ZOLPIDEM TARTRATE 5 MG TAB PO PRN (21:00)
[2018-04-21] VITALS (30 sets, daily range): BP systolic 139–162; BP diastolic 63–90; PULSE 76–97; RESP 16–26; TEMP 97.6–99; O2SAT 89–98
[2018-04-21] MEDS: RESP: ALBUTEROL 2.5 MG/IPRATROPIUM 0.5 MG NEB (SCH) NEB ×4 (03:15→20:37)
[2018-04-21 04:19] LABS: AUTOMATED NEUTROPHIL # 11.1 TH/MM3 (1.8-7.7); BASOPHIL % 0.2 % (0.0-2.0); HEMATOCRIT 44.6 % (39.0-51.0); HEMOGLOBIN 14.5 GM/DL (13.0-17.0); LYMPH % 5.2 % (9.0-44.0); LYMPHOCYTE # 0.7 TH/MM3 (1.0-4.8); MEAN CELL VOLUME 89.1 FL (80.0-100.0); MEAN CORPUSCULAR HGB CONC 32.5 % (32.0-36.0); MEAN PLATELET VOLUME 7.6 FL (7.0-11.0); MONO % 7.5 % (0.0-8.0); MONOCYTE # 0.9 TH/MM3 (0-0.9); NEUT % 87.1 % (16.0-70.0); PLATELET COUNT 353 TH/MM3 (150-450); RED CELL DISTRIBUTION WIDTH 13.9 % (11.6-17.2); WHITE BLOOD COUNT 12.7 TH/MM3 (4.0-11.0)
[2018-04-21 04:51] LABS: BICARBONATE 42.2 MEQ/L (21.0-32.0); CALCIUM 9.4 MG/DL (8.5-10.1); CREATININE 1.44 MG/DL (0.60-1.30)
[2018-04-21] MEDS: HEPARIN SODIUM - SQ 10,000 UNITS/ML VIAL SQ SCH ×3 (05:50→21:16)
[2018-04-21] MEDS: methylPREDNISolone SOD SUCC 40 MG/1 ML VIAL IV PUSH SCH (05:50)
[2018-04-21] MEDS: CHOLECALCIFEROL (VIT D3) 1000 UNIT TAB PO SCH (08:30)
[2018-04-21] MEDS: PRAVASTATIN SOD 40 MG TAB PO SCH (08:30)
[2018-04-21] MEDS: ASPIRIN 81 MG CHEW TAB CHEW SCH (08:30)
[2018-04-21] MEDS: guaiFENesin E.R. 600 MG TAB PO SCH ×2 (08:30→20:09)
[2018-04-21] MEDS: METOPROLOL TARTRATE 50 MG TAB PO SCH ×2 (08:30→20:08)
[2018-04-21] MEDS: BUDESONIDE-FORMOTEROL 160/4.5 MCG INHALER INH SCH ×2 (08:31→20:09)
[2018-04-21] MEDS: SODIUM CHLORIDE FLUSH BID IV FLUSH SCH ×2 (08:31→20:10)
[2018-04-21] MEDS: FUROSEMIDE 40 MG TAB PO SCH (08:31)
--- NOTE | 2018-04-21 08:34 | HHI.PR ---
Subjective Remarks Pt seen and examined. AFVSS. On oxygen mask. Reports his breathing continues to get better. Still has an occasional cough with sputum production. Denies fever, chills, chest pain, nausea, vomiting, hemoptysis. Anxious to go home. States he feels depressed because he is in the hospital. When asked he states he has always been on the "borderline "of diabetes but has never been formally diagnosed or treated. He denies any history of kidney issues but admits that he has not been hydrating himself while he is here in the hospital as much as he does at home. Objective Vital Signs Date Time Temp Pulse Resp B/P (MAP) Pulse Ox O2 Delivery O2 Flow Rate FiO2 04/21/18 04:00 97.7 91 22 152/82 (105) 89 04/21/18 04:00 Venturi Mask 50 04/21/18 04:00 89 04/21/18 02:06 94 Venturi Mask 6.00 50 04/21/18 02:05 95 40 04/21/18 02:04 Venturi Mask 50 04/21/18 00:00 93 04/21/18 00:00 97.9 97 26 162/84 (110) 93 04/21/18 00:00 Bi-Pap 40 04/20/18 21:47 Bi-Pap 40 04/20/18 21:36 94 40 04/20/18 21:15 94 Venturi Mask 6.00 50 04/20/18 20:00 96 04/20/18 20:00 98.7 96 24 139/74 (95) 91 04/20/18 20:00 Venturi Mask 50 04/20/18 18:00 102 04/20/18 17:00 90 04/20/18 16:00 90 04/20/18 15:15 92 Venturi Mask 6.00 04/20/18 15:15 97.6 89 18 142/76 (98) 92 04/20/18 15:00 90 04/20/18 14:00 90 04/20/18 13:00 89 04/20/18 12:00 84 04/20/18 11:55 98.1 84 20 136/72 (93) 93 04/20/18 11:55 93 Venturi Mask 6.00 04/20/18 11:00 84 04/20/18 10:00 84 04/20/18 09:42 93 Venturi Mask 6.00 50 04/20/18 09:07 93 Venturi Mask 6.00 04/20/18 09:07 98.2 87 18 149/82 (104) 93 04/20/18 09:00 95 I/O 04/20/18 04/20/18 04/20/18 04/21/18 04/21/18 04/21/18 07:00 15:00 23:00 07:00 15:00 23:00 Intake Total 900 ml 720 ml 360 ml Output Total 400 ml 601 ml 575 ml Balance 500 ml 119 ml -215 ml Intake Oral 900 ml 720 ml 360 ml Output Urine Total 400 ml 600 ml 575 ml Stool Total 1 ml # Bowel Movements 0 Result Diagram: 04/21/1834304/21/18343 Objective Remarks GENERAL: WN, WD male laying in bed in NAD. SKIN: Warm and dry. HEENT: AT/NC. Pupils equal and round. MMM. Venturi mask in place. HEART: RRR no m/r/g. LUNGS: Slightly improved aeration compared to yesterday's exam. Diminished breath sounds with occasional expiratory wheezing. No crackles. Speaking in complete sentences. ABDOMEN: +BS, soft, NT, ND. EXTREMITIES: No LE edema. No calf tenderness. NEURO: Awake and alert. PSYCH: Appropriate mood and affect. A/P Assessment and Plan 62 YOWM with O2-dependent COPD, CHF, HTN, and HLD admitted on 04/18 with respiratory distress, diaphoresis, and confusion found to be in hypercapnic respiratory failure. 1. COPD exacerbation - Improved in the ED with BiPAP - CXR with chronic lung findings c/w COPD/emphysema with possible interstitial lung disease - Pulmonology following, appreciate reccs - Supplemental O2 to maintain sats 88-92% - IV Solumedrol 40 mg Q6H --> change to Q8H today - DuoNebs - Azithromycin x 5 days - Mucinex - Continue home Symbicort - BiPAP at night - PFTs once better 2. Hypercapnic respiratory failure - CO2 44.1 on BMP - Continue to follow - BiPAP at night - Supplemental O2 and bronchodilators 3. Acute kidney injury - Creatinine gradually rising, up to 1.44 today from 1.03 on admission - Discontinue Lasix - Check U/A - Gentle hydration with normal saline at 42 mL/hour - Avoid nephrotoxic agents 4. Hyperglycemia - Likely secondary to steroid use but will start SSI and check A1c 5. Diastolic CHF - Euvolemic on exam - Continue home ASA, metoprolol - Holding Lasix in light of ARF 6. HTN - BPs have been elevated - Continue home metoprolol - Start amlodipine 5 mg daily - Monitor vitals - Clonidine PRN 7. HLD - Continue home statin 8. Low TSH - Free T4 mildly elevated - May be unreliable in setting of acute illness - Recommend following as OP DVT prophylaxis: Heparin Discharge Planning Possibly in 1-2 days pending clinical improvement Lucretia Tejada MD Apr 21, 2018 08:34
[2018-04-21] MEDS: amLODIPine BESYLATE 5 MG TAB PO SCH ×2 (08:40→09:09)
[2018-04-21] MEDS ORDERED: DEXTROSE 50% IN WATER 50 ML VIAL(D50) IV PUSH PRN (08:45)
[2018-04-21] MEDS ORDERED: GLUCAGON 1 MG/ML VIAL OTHER PRN (08:45)
[2018-04-21] MEDS ORDERED: ACETAMINOPHEN/HYDROcodone 325 MG/5 MG TAB PO PRN (09:45)
[2018-04-21] MEDS ORDERED: SODIUM CHLOR 0.9% 1000 ML INJ 1,000 ML IV SCH (10:00)
[2018-04-21 10:30] LABS: HEMOGLOBIN A1C 7.2 % (4.3-6.0)
[2018-04-21] MEDS: INSULIN ASPART SUPPLEMENTAL SCALE SQ SCH ×3 (12:00→21:14)
[2018-04-21] MEDS ORDERED: methylPREDNISolone SOD SUCC 40 MG/1 ML VIAL IV PUSH SCH (14:00)
--- NOTE | 2018-04-21 18:29 | HHI.PR ---
Subjective Remarks 62 YOWM with COPD exac, hypercapnoic RF Did't use CPAP Weaned to 2LNC Anxious to go home. Breathing better Objective Vital Signs Vital Signs Date Time Temp Pulse Resp B/P (MAP) Pulse Ox O2 Delivery O2 Flow Rate FiO2 04/21/18 18:00 95 04/21/18 17:00 82 04/21/18 16:00 80 04/21/18 15:50 92 Nasal Cannula 3.00 04/21/18 15:50 98.0 86 16 152/82 (105) 89 04/21/18 15:00 87 04/21/18 14:00 78 04/21/18 13:00 80 04/21/18 12:02 92 Nasal Cannula 4.00 04/21/18 12:02 98.2 78 16 142/74 (96) 92 04/21/18 12:00 80 04/21/18 11:00 77 04/21/18 10:47 92 Nasal Cannula 4.00 04/21/18 10:00 78 04/21/18 10:00 96 Nasal Cannula 6.00 50 04/21/18 09:00 76 04/21/18 08:50 97.6 91 20 141/83 (102) 94 04/21/18 08:50 96 Venturi Mask 6.00 04/21/18 08:00 78 04/21/18 07:00 80 04/21/18 04:00 97.7 91 22 152/82 (105) 89 04/21/18 04:00 Venturi Mask 50 04/21/18 04:00 89 04/21/18 02:06 94 Venturi Mask 6.00 50 04/21/18 02:05 95 40 04/21/18 02:04 Venturi Mask 50 04/21/18 00:00 93 04/21/18 00:00 97.9 97 26 162/84 (110) 93 04/21/18 00:00 Bi-Pap 40 04/20/18 21:47 Bi-Pap 40 04/20/18 21:36 94 40 04/20/18 21:15 94 Venturi Mask 6.00 50 04/20/18 20:00 96 04/20/18 20:00 98.7 96 24 139/74 (95) 91 04/20/18 20:00 Venturi Mask 50 I/O 604/20/18 04/20/18 04/21/18 04/21/18 04/21/18 07:00 15:00 23:00 07:00 15:00 23:00 Intake Total 900 ml 720 ml 360 ml 860 ml Output Total 400 ml 601 ml 575 ml 451 ml Balance 500 ml 119 ml -215 ml 409 ml Intake Oral 900 ml 720 ml 360 ml 860 ml Output Urine Total 400 ml 600 ml 575 ml 450 ml Stool Total 1 ml 1 ml # Bowel Movements 0 Result Diagram: 04/21/18 0344 04/21/18 0344 Objective Remarks GENERAL: WBWN WM, mild sob SKIN: Warm and dry. HEAD: Normocephalic. EYES: No scleral icterus. No injection or drainage. NECK: Supple, trachea midline. No JVD or lymphadenopathy. CARDIOVASCULAR: Regular rate and rhythm without murmurs, gallops, or rubs. RESPIRATORY: Breath sounds equal bilaterally. No accessory muscle use. Exp rhonchi. GASTROINTESTINAL: Abdomen soft, non-tender, nondistended. MUSCULOSKELETAL: No cyanosis, or edema. BACK: Nontender without obvious deformity. No CVA tenderness. A/P Assessment and Plan IMPRESSION: 1. Hypercapnic respiratory failure. He Improved with BiPAP therapy. 2. Chronic obstructive pulmonary disease exacerbation with bronchitis. 3. Hypertension. 4. Pulmonary hypertension. 5. Diastolic congestive heart failure. PLAN: DC Solumedrol PO steroids Aerosol nebs Symbicort 2 puffs bid Cont Abx Supplement 02 CPAP prn SQ Heparin. Stable from Pulm standpoint DC plans for home Mane Adan MD Apr 21, 2018 18:29
[2018-04-21] MEDS: predniSONE 20 MG TAB PO SCH (20:08)
[2018-04-21] MEDS: AZITHROMYCIN 250 MG TAB PO SCH (20:09)
[2018-04-21] MEDS: ZOLPIDEM TARTRATE 5 MG TAB PO PRN (21:14)
[2018-04-21] MEDS ORDERED: ALUMINUM/MAGNESIUM/SIMETH 30 ML CUP PO ONE (21:45)
[2018-04-21] MEDS ORDERED: INSULIN ASPART 1,000 UNITS/10 ML VIAL SQ ONE (21:45)
[2018-04-22] VITALS (16 sets, daily range): BP systolic 137–145; BP diastolic 82–83; PULSE 74–92; RESP 18–20; TEMP 97.5–98.4; O2SAT 91–93
[2018-04-22] MEDS ORDERED: ZOLPIDEM TARTRATE 5 MG TAB PO ONE (01:00)
[2018-04-22] MEDS: RESP: ALBUTEROL 2.5 MG/IPRATROPIUM 0.5 MG NEB (SCH) NEB ×2 (04:17→10:00)
[2018-04-22] MEDS: HEPARIN SODIUM - SQ 10,000 UNITS/ML VIAL SQ SCH (06:10)
[2018-04-22 06:38] LABS: AUTOMATED NEUTROPHIL # 9.5 TH/MM3 (1.8-7.7); BASOPHIL % 0.1 % (0.0-2.0); HEMATOCRIT 45.8 % (39.0-51.0); HEMOGLOBIN 14.9 GM/DL (13.0-17.0); LYMPH % 6.6 % (9.0-44.0); LYMPHOCYTE # 0.8 TH/MM3 (1.0-4.8); MEAN CELL VOLUME 90.3 FL (80.0-100.0); MEAN CORPUSCULAR HEMOGLOBIN 29.4 PG (27.0-34.0); MEAN CORPUSCULAR HGB CONC 32.5 % (32.0-36.0); MEAN PLATELET VOLUME 7.3 FL (7.0-11.0); MONO % 9.4 % (0.0-8.0); MONOCYTE # 1.1 TH/MM3 (0-0.9); NEUT % 83.9 % (16.0-70.0); PLATELET COUNT 303 TH/MM3 (150-450); RED BLOOD COUNT 5.07 MIL/MM3 (4.50-5.90); RED CELL DISTRIBUTION WIDTH 13.9 % (11.6-17.2); WHITE BLOOD COUNT 11.4 TH/MM3 (4.0-11.0)
[2018-04-22 07:03] LABS: BICARBONATE 41.3 MEQ/L (21.0-32.0); CALCIUM 9.6 MG/DL (8.5-10.1); CREATININE 1.36 MG/DL (0.60-1.30)
[2018-04-22] MEDS: INSULIN ASPART SUPPLEMENTAL SCALE SQ SCH ×2 (08:00→12:21)
[2018-04-22 08:35] LABS: BILIRUBIN, URINE NEG (NEG); BLOOD, URINE NEG (NEG); GLUCOSE,URINE NEG (NEG); KETONE, URINE NEG (NEG); MUCUS URINE FEW /lpf (OCC); NITRITE,URINE NEG (NEG); PH, URINE 6.5 (5.0-8.5); SQUAMOUS EPITHELIAL CELL URINE <1 /hpf (0-5); URINE COLOR YELLOW (YELLW/STRAW); URINE LEUKOCYTE ESTERASE NEG (NEG)
[2018-04-22] MEDS: predniSONE 20 MG TAB PO SCH (08:55)
[2018-04-22] MEDS: PRAVASTATIN SOD 40 MG TAB PO SCH (08:55)
[2018-04-22] MEDS: METOPROLOL TARTRATE 50 MG TAB PO SCH (08:55)
[2018-04-22] MEDS: amLODIPine BESYLATE 5 MG TAB PO SCH (08:55)
[2018-04-22] MEDS: CHOLECALCIFEROL (VIT D3) 1000 UNIT TAB PO SCH (08:55)
[2018-04-22] MEDS: ASPIRIN 81 MG CHEW TAB CHEW SCH (08:55)
[2018-04-22] MEDS: guaiFENesin E.R. 600 MG TAB PO SCH (08:55)
[2018-04-22] MEDS: BUDESONIDE-FORMOTEROL 160/4.5 MCG INHALER INH SCH (08:57)
[2018-04-22] MEDS: SODIUM CHLORIDE FLUSH BID IV FLUSH SCH (09:00)
[2018-04-22] MEDS ORDERED: PRED20 PO (12:01)
[2018-04-22] MEDS ORDERED: AMLO5 PO (12:01)
[2018-04-22] MEDS ORDERED: LEVA500T33 PO (12:01)
[2018-04-22] MEDS ORDERED: METF500T PO (12:05)
--- NOTE | 2018-04-22 17:09 | HHI.DS ---
Discharge Summary Admission Date April 18, 2018 at 9:59 pm Discharge Date: Apr 22, 2018 Admitting Diagnosis exac copd, chf (1) Diabetes mellitus ICD Code: E11.9 - Type 2 diabetes mellitus without complications (2) COPD (chronic obstructive pulmonary disease) ICD Code: J44.9 - Chronic obstructive pulmonary disease, unspecified Status: Chronic Procedures None. Brief History - From Admission 62-year-old male with a past medical history significant for COPD, hypertension , CHF (EF of 55-60% on 05/03/17) and hyperlipidemia presented to the emergency department for evaluation of respiratory distress. Per the patient, over the last 24 hours he became increasingly short of breath. [facility] however he was so short of breath he could not wait for them to arrive. The patient reports that he called his son who arrived to his father's home and found him in severe respiratory distress, diaphoretic and confused from baseline. On arrival to the emergency department the patient had an oxygen saturation in the 80s and was tachypneic and tachycardic. He denies any chest pain or pressure. No abdominal pain. No nausea/vomiting/diarrhea. No fever/chills. No lateralizing signs/symptoms. CBC/BMP: 04/22/18 0610 04/22/18 0610 Significant Findings Laboratory Tests Test 04/20/18 04:21 04/21/18 03:44 04/22/18 06:10 04/22/18 07:44 Neutrophils (%) (Auto) 87.9 % (16.0-70.0) 87.1 % (16.0-70.0) 83.9 % (16.0-70.0) Lymphocytes (%) (Auto) 5.6 % (9.0-44.0) 5.2 % (9.0-44.0) 6.6 % (9.0-44.0) Neutrophils # (Auto) 9.5 TH/MM3 (1.8-7.7) 11.1 TH/MM3 (1.8-7.7) 9.5 TH/MM3 (1.8-7.7) Lymphocytes # (Auto) 0.6 TH/MM3 (1.0-4.8) 0.7 TH/MM3 (1.0-4.8) 0.8 TH/MM3 (1.0-4.8) Blood Urea Nitrogen 38 MG/DL (7-18) 41 MG/DL (7-18) 39 MG/DL (7-18) Creatinine 1.37 MG/DL (0.60-1.30) 1.44 MG/DL (0.60-1.30) 1.36 MG/DL (0.60-1.30) Random Glucose 209 MG/DL (74-106) 280 MG/DL (74-106) 186 MG/DL (74-106) Albumin 2.9 GM/DL (3.4-5.0) Phosphorus Level 2.2 MG/DL (2.5-4.9) Aspartate Amino Transf (AST/SGOT) 9 U/L (15-37) Chloride Level 90 MEQ/L (98-107) 88 MEQ/L (98-107) 93 MEQ/L (98-107) Carbon Dioxide Level 44.1 MEQ/L (21.0-32.0) 42.2 MEQ/L (21.0-32.0) 41.3 MEQ/L (21.0-32.0) Estimat Glomerular Filtration Rate 53 ML/MIN (>89) 50 ML/MIN (>89) 53 ML/MIN (>89) Hemoglobin A1c 7.0 % (4.3-6.0) 7.2 % (4.3-6.0) Free Thyroxine 1.64 NG/DL (0.76-1.46) Thyroid Stimulating Hormone 3rd Gen 0.047 uIU/ML (0.358-3.740) White Blood Count 12.7 TH/MM3 (4.0-11.0) 11.4 TH/MM3 (4.0-11.0) Monocytes (%) (Auto) 9.4 % (0.0-8.0) Monocytes # (Auto) 1.1 TH/MM3 (0-0.9) Urine Protein 30 mg/dL (NEG-TRACE) Urine Mucus FEW /lpf (OCC) Test 04/22/18 09:08 Imaging Last Impressions Chest X-Ray 56 Signed Impressions: CONCLUSION: No acute pulmonary abnormality is identified. Chronic lung findings indicate ob structive airways disease/emphysema with possible interstitial lung disease. PE at Discharge GENERAL: Awake alert and oriented 3 talkative and cooperative appears to be in some distress still-- becomes very short of breath off oxygen SKIN: Warm and dry. HEAD: Atraumatic. Normocephalic. EYES: Pupils equal and round. No scleral icterus. No injection or drainage. ENT: No nasal bleeding or discharge. Mucous membranes pink and moist. NECK: Trachea midline. No JVD. CARDIOVASCULAR: Regular rate and rhythm. S1-S2 no S3 or S4 RESPIRATORY: No accessory muscle use Breath sounds equal bilaterally. Coarse breath sounds and rhonchi and wheezes bilaterally GASTROINTESTINAL: Abdomen soft, non-tender, nondistended. Hepatic and splenic margins not palpable. MUSCULOSKELETAL: Extremities without clubbing, cyanosis, or edema. No obvious deformities. NEUROLOGICAL: Awake and alert. No obvious cranial nerve deficits. Motor grossly within normal limits. Five out of 5 muscle strength in the arms and legs. Normal speech. PSYCHIATRIC: Appropriate mood and affect; insight and judgment normal. Pt update on day of discharge Patient is currently doing well. Ambulating well. No acute concerns. Wants to go home. Hospital Course 62 YOWM with O2-dependent COPD, CHF, HTN, and HLD admitted on 04/18 with respiratory distress, diaphoresis, and confusion found to be in hypercapnic respiratory failure. 1. COPD exacerbation - Will continue Home O2, Prednisone 20mg BID X 4 days, Levaquin, Symbicort. - Patient will follow up with PCP. Advised patient to use 2-3 L of O2. If he requires more persistently, he needs to seek medical attention. 2. Hypercapnic respiratory failure - CO2 44.1 on BMP - Required BiPAP at night - Supplemental O2 and bronchodilators 3. Acute kidney injury - 1.44 --> 1.36. 4. Diabetes mellitus - likely undiagnosed - Will start patient on Metformin 500mg BID. HbA1c 7.2. - Follow up with PCP. 5. Diastolic CHF - Euvolemic on exam - Continue home ASA, metoprolol - Continue Lasix on discharge, dosage can be adjusted by PCP. 6. HTN - Continue home metoprolol - amlodipine 5 mg daily 7. HLD - Continue home statin 8. Low TSH - Free T4 mildly elevated - May be unreliable in setting of acute illness - Recommend following as OP DVT prophylaxis: Heparin Pt Condition on Discharge: Good Discharge Disposition: Discharge Home Discharge Time: <= 30 minutes Discharge Instructions DIET: Follow Instructions for: Diabetic Diet Activities you can perform: Regular-No Restrictions Follow up Referrals: PCP Follow-up - 1 Week New Medications: Levofloxacin (Levaquin) 500 Mg Tablet 500 MG PO DAILY for Infection, #7 TAB 0 Refills Metformin (Metformin) 500 Mg Tab 500 MG PO BIDPC for Blood Sugar Management, #60 TAB 3 Refills Amlodipine (Norvasc) 5 Mg Tab 5 MG PO DAILY for Blood Pressure Management, #30 TAB 11 Refills Prednisone (Prednisone) 20 Mg Tab 20 MG PO BID for COPD, #8 TAB Continued Medications: Aspirin (Aspirin Low Strength) 81 Mg Chew 81 MG CHEW DAILY, #30 EA take as prescribed Budesonide-Formoterol Inh (Symbicort Inh) 160-4.5 Mcg/Act Aero 2 PUFF INH Q12HR, #1 INHALER 0 Refills Rinse mouth after each use Cholecalciferol (Vitamin D3) 1,000 Unit Tab 2000 UNITS PO DAILY for Nutritional Supplement, #1 BOTTLE 0 Refills Furosemide (Furosemide) 40 Mg Tab 40 MG PO DAILY, #30 TAB 0 Refills take as prescribed Ipratropium-Albuterol Inh (Combivent Respimat Inh) 20-100 Care Home/Act Aero 1 PUFF INH Q4HR for Shortness of Breath, #1 INHALER 0 Refills Do not exceed 6 puffs/24hrs Ipratropium-Albuterol Neb (Duoneb) 0.5-2.5 Mg/3 Ml Neb 1 VIAL NEB BID PRN for SHORTNESS OF BREATH, #30 NEBULE 0 Refills Metoprolol Tartrate (Metoprolol Tartrate) 100 Mg Tab 50 MG PO BID for Blood Pressure Management, #60 TAB 0 Refills Pravastatin (Pravastatin) 40 Mg Tab 40 MG PO DAILY for Cholesterol Management, #30 TAB 0 Refills Ozzie Jay DO Apr 22, 2018 5:09 pm
== END 2018-04-22 13:52 | disposition home or self-care (01) | DRG 190 ==
LOC: NEPC 18:04 → NEDA 21:59 → HCIS 04-19 03:33
PROVIDERS: ADMIT Hospitalist; ATTEND Hospitalist
PROC: 5A09357 Assistance with Respiratory Ventilation, Less than 24 Consecutive Hours, Continuous Positive Airway Pressure (ICD-10-PCS; principal; 2018-04-18)
DX: J44.1 Chronic obstructive pulmonary disease with (acute) exacerbation (principal); J96.92 Respiratory failure, unspecified with hypercapnia; I27.20 Pulmonary hypertension, unspecified; N17.9 Acute kidney failure, unspecified; I50.30 Unspecified diastolic (congestive) heart failure; E11.65 Type 2 diabetes mellitus with hyperglycemia; I11.0 Hypertensive heart disease with heart failure; E78.5 Hyperlipidemia, unspecified; R00.0 Tachycardia, unspecified; T38.0X5A Adverse effect of glucocorticoids and synthetic analogues, initial encounter; E78.00 Pure hypercholesterolemia, unspecified; R94.6 Abnormal results of thyroid function studies; Z79.82 Long term (current) use of aspirin; Z87.891 Personal history of nicotine dependence; Z82.49 Family history of ischemic heart disease and other diseases of the circulatory system; Z86.73 Personal history of transient ischemic attack (TIA), and cerebral infarction without residual deficits; Z86.79 Personal history of other diseases of the circulatory system
CPT/HCPCS: 36600; 71045; 80048; 80053; 81001; 82550; 82552; 82805; 82948; 83036; 83735; 83880; 84100; 84439; 84443; 84484; 85025; 87040; 87493; 93005; 94002; 94003; 94150; 94640; 94664; 96374; J1644; J1815; J1940; J2920; J2930; J7030; J7512; J7613